=== PATIENT | female | born 1955 | race Asian ===

== ENCOUNTER → 2016-10-08 | Outpatient (CLI) | payer BC ==
[~2016-10-08] MED LIST: ADVIN25/60 INH; ALBINS/ INH; ALBUAER19 INH; ASPI81TA28 PO; AZITTAB2 PO; CALC500C70 PO; CLR10 PO; DILT120C68 PO; FISHOIL PO; MONT1TAB3 PO; MULTTAB58 PO; OSTEO BI FLEX PO; PLMIN90 INH; VNTHFA/IN INH
--- NOTE | 2016-10-08 16:29 | MAMMOGRAPHY REPORT ---
BILATERAL DIGITAL SCREENING MAMMOGRAM WITH CAD: 10/08/2016 CLINICAL HISTORY: Routine screening. Patient has no complaints. TECHNIQUE: Current study was also evaluated with a Computer Aided Detection (CAD) system. Bilatera l CC and MLO views were obtained. COMPARISON: Comparison is made to exams dated: 08/05/2015 mammogram, 07/27/2013 mammogram, 06/29/2011 mammogram, 07/04/2006 mammogram, 06/01/2002 mammogram, and 07/26/2012 mammogram - [facility]. BREAST COMPOSITION: There are scattered areas of fibroglandular density in both breasts. FINDINGS: No suspicious masses, calcifications, or areas of architectural distortion are noted in e ither breast. There has been no significant interval change compared to prior exams. IMPRESSION: ACR BI-RADS CATEGORY 1: NEGATIVE There is no mammographic evidence of malignancy. A 1 year screening mammogram is recommended. The p atient will receive written notification of the results. Approximately 10% of breast cancers are not detected with mammography. A negative mammographic repor t should not delay biopsy if a clinically suggestive mass is present. Nessa Whitaker M.D. /:10/08/2016 15:09:56 Real Estate Branch Manager: Sue Mayo, [facility] letter sent: Normal 1/2 BI-RADS Code: ACR BI-RADS Category 1: Negative
== END | disposition home or self-care (01) ==
LOC: C.MAMM 13:27
PROVIDERS: ATTEND Obstetrics & Gynecology
DX: Z12.31 Encounter for screening mammogram for malignant neoplasm of breast (principal)

== ENCOUNTER → 2016-10-27 | Outpatient (CLI) | payer BC | END | disposition home or self-care (01) | LOC: C.PAPS 09:42 | PROVIDERS: ATTEND Obstetrics & Gynecology | DX: Z01.419 Encounter for gynecological examination (general) (routine) without abnormal findings (principal) ==

== ENCOUNTER 2016-12-24 03:10 | Emergency (ER) | payer BC ==
[~2016-12-24] VITALS: Ht 170.2 cm; Wt 112.7 kg
[~2016-12-24 03:10] MED LIST changes: -ASPI81TA28 PO; -CALC500C70 PO; -CLR10 PO; -DILT120C68 PO; -PLMIN90 INH; -VNTHFA/IN INH
[2016-12-24 03:12] VITALS: TEMP 36.7; Ht 170.2 cm; Wt 112.7 kg
[2016-12-24] MEDS ORDERED: DILTIAZEM HCL 5 MG/ML 5 ML VIAL IV STA (03:23)
[2016-12-24] MEDS ORDERED: SODIUM CHLORIDE 0.9% 1000ML 1,000 ML IV STA (03:23)
[2016-12-24] MEDS ORDERED: SODIUM CHLORIDE 0.9% 250ML 250 ML IV STA (03:23)
[2016-12-24] MEDS ORDERED: DILTIAZEM BOLUS / DRIP IV STA (03:35)
[2016-12-24 03:36] LABS: BASO % 0.1 %; BASO ABS # 0.02 K/uL (0-0.2); COMPLETE YES; HEMATOCRIT 40.5 % (37-47); IG% 0.3 %; LYMPH % 36.6 %; LYMPH ABS # 4.94 K/uL (1.2-3.4); MEAN CELL VOLUME 85.4 fL (80-100); MEAN CORPUSCULAR HEMOGLOBIN 28.3 pg (25-34); MEAN CORPUSCULAR HGB CONC 33.1 g/dl (32-36); MEAN PLATELET VOLUME 9.8 fL (7.4-10.4); MONO % 5.3 %; NEUT % 57.7 %; PLATELET COUNT 258 K/uL (130-400); RED BLOOD COUNT 4.74 M/uL (4.2-5.4); WHITE BLOOD COUNT 13.49 K/uL (4.8-10.8)
[2016-12-24 03:39] VITALS: O2SAT 97
[2016-12-24] MEDS ORDERED: DILTIAZEM HCL INJ 125 MG in DEXTROSE 5% 100ML IV PRN (03:45)
[2016-12-24 03:54] LABS: ALT/SGPT 37 U/L (12-78); AST/SGOT 34 U/L (15-37); BLOOD UREA NITROGEN 24 mg/dl (7-18); CARBON DIOXIDE 22 mmol/L (21-32); CHLORIDE 109 mmol/L (98-107); CREATININE 0.96 mg/dl (0.60-1.20); GLUCOSE 150 mg/dl (70-99); MAGNESIUM 2.1 mg/dl (1.8-2.4); SODIUM 141 mmol/L (136-145)
[2016-12-24 04:05] LABS: ALKALINE PHOSPHATASE 83 U/L (45-117)
--- NOTE | 2016-12-24 04:11 | EMERGENCY ROOM VISIT NOTE ---
ED Visit Note First contact with patient: 03:17 Patient seen by me. Patient was worked up by the physician internal medicine physician assistant and agree with the workup. Patient was found to be in rapid atrial fibrillation, SVT was given a dose of Cardizem and after an IV was replaced patient went and was converted back to sinus rhythm. Patient is resting comfortably at 4:11 AM. Current/Historical Medications Scheduled Albuterol Inhaler (Ventolin Inhaler), 2 PUFFS INH Q4HR PRN Albuterol Sulf (Proventil 0.083% 2.5MG/3ML), 2.5 MG INH Q4-6HR PRN Azithromycin (Zithromax Tri-Jessee), 0 PO UD Fish Oil ([place]-3), 1 CAP PO DAILY Fluticasone Prop/Salmeterol (Advair Diskus 250/50 60 Dose), 1 PUFF INH BID Montelukast Sodium (Singulair), 10 MG PO HS Multiple Vitamin (Multivitamin), 1 TABLET PO DAILY [Osteo Bi flex], 1 TABLET PO DAILY Allergies Coded Allergies: No Known Allergies (Verified Allergy, Unknown, 08/30/02) Vital Signs Date Time Temp Pulse Resp B/P (MAP) Pulse Ox O2 Delivery O2 Flow Rate FiO2 12/24/16 04:01 69 12/24/16 03:39 97 Room Air 12/24/16 03:37 163 12/24/16 03:15 97 Room Air 12/24/16 03:12 36.7 85 22 139/82 97 Room Air Laboratory Results 12/24/16 03:25 Red Blood Count 4.74, Mean Corpuscular Volume 85.4, Mean Corpuscular Hemoglobin 28.3, Mean Corpuscular Hemoglobin Concent 33.1, Mean Platelet Volume 9.8, Neutrophils (%) (Auto) 57.7, Lymphocytes (%) (Auto) 36.6, Monocytes (%) (Auto) 5.3, Eosinophils (%) (Auto) 0.0, Basophils (%) (Auto) 0.1, Neutrophils # (Auto) 7.77, Lymphocytes # (Auto) 4.94, Monocytes # (Auto) 0.72, Eosinophils # (Auto) 0.00, Basophils # (Auto) 0.02 12/24/16 03:25 Test 12/24/16 03:25 12/24/16 03:31 White Blood Count 13.49 K/uL (4.8-10.8) Red Blood Count 4.74 M/uL (4.2-5.4) Hemoglobin 13.4 g/dL (12.0-16.0) Hematocrit 40.5 % (37-47) Mean Corpuscular Volume 85.4 fL (80-100) Mean Corpuscular Hemoglobin 28.3 pg (25-34) Mean Corpuscular Hemoglobin Concent 33.1 g/dl (32-36) Platelet Count 258 K/uL (130-400) Mean Platelet Volume 9.8 fL (7.4-10.4) Neutrophils (%) (Auto) 57.7 % Lymphocytes (%) (Auto) 36.6 % Monocytes (%) (Auto) 5.3 % Eosinophils (%) (Auto) 0.0 % Basophils (%) (Auto) 0.1 % Neutrophils # (Auto) 7.77 K/uL (1.4-6.5) Lymphocytes # (Auto) 4.94 K/uL (1.2-3.4) Monocytes # (Auto) 0.72 K/uL (0.11-0.59) Eosinophils # (Auto) 0.00 K/uL (0-0.5) Basophils # (Auto) 0.02 K/uL (0-0.2) RDW Standard Deviation 45.2 fL (36.4-46.3) RDW Coefficient of Variation 14.5 % (11.5-14.5) Immature Granulocyte % (Auto) 0.3 % Immature Granulocyte # (Auto) 0.04 K/uL (0.00-0.02) Anion Gap 10.0 mmol/L (3-11) Est Creatinine Clear Calc Drug Dose 80.7 ml/min Estimated GFR () 74.5 Estimated GFR (Non- 64.3 BUN/Creatinine Ratio 25.0 (10-20) Calcium Level 9.0 mg/dl (8.5-10.1) Magnesium Level 2.1 mg/dl (1.8-2.4) Total Bilirubin 0.2 mg/dl (0.2-1) Direct Bilirubin < 0.1 mg/dl (0-0.2) Aspartate Amino Transf (AST/SGOT) 34 U/L (15-37) Alanine Aminotransferase (ALT/SGPT) 37 U/L (12-78) Alkaline Phosphatase 83 U/L (45-117) Troponin I < 0.015 ng/ml (0-0.045) Total Protein 7.5 gm/dl (6.4-8.2) Albumin 3.6 gm/dl (3.4-5.0) Thyroid Stimulating Hormone (TSH) 6.330 uIu/ml (0.300-4.500) Bedside Troponin I < 0.030 ng/ml (0-0.045) Medications Administered Medications (Trade) Dose Ordered Sig/[place] Route Start Time Stop Time Status Last Admin Dose Admin Diltiazem HCl (Cardizem Inj) 20 mg NOW STAT IV 12/24/16 03:23 12/24/16 03:25 DC 12/24/16 03:31 20 MG Sodium Chloride 250 ml @ 999 mls/hr Q16M STAT IV 12/24/16 03:23 12/24/16 03:38 DC 12/24/16 03:34 999 MLS/HR Sodium Chloride 1,000 ml @ 125 mls/hr Q8H STAT IV 12/24/16 03:23 12/24/16 11:22 12/24/16 03:56 125 MLS/HR Departure Information Referrals Pro,Osbaldo Garg M.D. (PCP) Patient Instructions [facility]
[2016-12-24] MEDS ORDERED: VNTHFA/IN INH (04:36)
[2016-12-24] MEDS ORDERED: CALC500C70 PO (04:36)
[2016-12-24] MEDS ORDERED: ASPIRIN 81 MG CHEW PO STA (04:42)
--- NOTE | 2016-12-24 04:53 | EMERGENCY ROOM VISIT NOTE ---
History First contact with patient: 03:17 Chief Complaint: CARDIAC ASSESSMENT Stated Complaint: HEART BEATING FUNNY Nursing Triage Summary: Pt reports she developed heart palpatations at approximately midnight tonight. Pt also complaining of diaphoresis and "tingling in left chest". Pt states she has been having episodes of palpatations for approximately 16mo and has been to see her PCP. Had echo completed and was normal. To have holter monitor if episodes continued. Hx of asthma History of Present Illness The patient is a 61 year old female who presents to the Emergency Room with complaints of fluttering in her chest for the past 4 hours. Patient states she' s had several episodes throughout the past year. She was twisting a Holter monitor but has not done this yet. She had an echo a few years ago that showed a leaky valve per patient. No prior heart disease. Patient is currently on prednisone for an upper respiratory infection. She does have asthma. She just finished Biaxin. She returned from [place] 2 weeks ago. Patient denies dyspnea, chest pain, back pain, leg pain or swelling, abdominal pain, cough, congestion. Patient states she just feels like her heart is fluttering and racing. No recent alcohol intake. No history of heart disease or PE. Review of Systems See HPI for pertinent positives & negatives. A total of 10 systems reviewed and were otherwise negative. Past Medical/Surgical History Asthma Social History Smoking Status: Never Smoker Alcohol Use: occasionally Drug Use: none Marital Status: Housing Status: lives with family Current/Historical Medications Scheduled Albuterol Sulf (Proventil 0.083% 2.5MG/3ML), 2.5 MG INH Q4-6HR PRN Calcium/Vitamin D (Os-Adelfo 500 Plus D), 1 TAB PO DAILY Fluticasone Prop/Salmeterol (Advair Diskus 250/50 60 Dose), 1 PUFF INH BID Montelukast Sodium (Singulair), 10 MG PO HS Multiple Vitamin (Multivitamin), 1 TABLET PO DAILY Scheduled PRN Albuterol Hfa (Ventolin Hfa), 2-4 PUFFS INH Q6H PRN for SOB/Wheezing Allergies Coded Allergies: No Known Allergies (Verified , 12/24/16) Physical Exam Vital Signs Date Time Temp Pulse Resp B/P (MAP) Pulse Ox O2 Delivery O2 Flow Rate FiO2 12/24/16 04:32 111/83 12/24/16 04:10 70 21 97 12/24/16 04:07 106/84 12/24/16 04:01 69 12/24/16 03:40 95 19 94 12/24/16 03:39 97 Room Air 12/24/16 03:37 163 12/24/16 03:33 116/94 12/24/16 03:27 124/100 12/24/16 03:15 97 Room Air 12/24/16 03:12 36.7 85 22 139/82 97 Room Air Physical Exam VITALS: Vitals are noted on the nurse's note and reviewed by myself. Vital signs tachycardic GENERAL: Pleasant female, in no acute distress, nondiaphoretic, well-developed well-nourished. SKIN: The skin was without rashes, erythema, edema, or bruising. There is no tenting of the skin. Capillary reflex less than 2 seconds. HEAD: Normocephalic atraumatic. EARS: External auditory canals clear, tympanic membranes pearly tamayo without erythema or effusion bilaterally. EYES: Pupils equal round and reactive to light and accommodation. Conjunctivae without injection, sclerae without icterus. Extraocular movements intact. NOSE: Patent, turbinates without inflammation or discharge. MOUTH: Mucous membranes moist. Pharynx without erythema or exudate. Uvula midline. Airway patent. Tongue does not deviate. NECK: Supple without nuchal rigidity. No lymphadenopathy. No thyromegaly. Cervical spine is nontender. No JVD. HEART: Irregularly irregular tachycardic LUNGS: Clear to auscultation bilaterally without wheezes, rales or rhonchi. No dullness to percussion. No retractions or accessory muscle use. ABDOMEN: Positive bowel sounds x 4. Normal tympanic percussion. Soft, nontender, without masses or organomegaly. Choudhury sign negative. No guarding or rebound tenderness. MUSCULOSKELETAL: No muscle atrophy, erythema, or edema noted. NEURO: Patient was alert and oriented to person place and time. Normal sensation to light and sharp touch. No focal neurological deficits. Medical Decision & Procedures Laboratory Results 12/24/16 03:25 Red Blood Count 4.74, Mean Corpuscular Volume 85.4, Mean Corpuscular Hemoglobin 28.3, Mean Corpuscular Hemoglobin Concent 33.1, Mean Platelet Volume 9.8, Neutrophils (%) (Auto) 57.7, Lymphocytes (%) (Auto) 36.6, Monocytes (%) (Auto) 5.3, Eosinophils (%) (Auto) 0.0, Basophils (%) (Auto) 0.1, Neutrophils # (Auto) 7.77, Lymphocytes # (Auto) 4.94, Monocytes # (Auto) 0.72, Eosinophils # (Auto) 0.00, Basophils # (Auto) 0.02 12/24/16 03:25 Test 12/24/16 03:25 12/24/16 03:31 White Blood Count 13.49 K/uL (4.8-10.8) Red Blood Count 4.74 M/uL (4.2-5.4) Hemoglobin 13.4 g/dL (12.0-16.0) Hematocrit 40.5 % (37-47) Mean Corpuscular Volume 85.4 fL (80-100) Mean Corpuscular Hemoglobin 28.3 pg (25-34) Mean Corpuscular Hemoglobin Concent 33.1 g/dl (32-36) Platelet Count 258 K/uL (130-400) Mean Platelet Volume 9.8 fL (7.4-10.4) Neutrophils (%) (Auto) 57.7 % Lymphocytes (%) (Auto) 36.6 % Monocytes (%) (Auto) 5.3 % Eosinophils (%) (Auto) 0.0 % Basophils (%) (Auto) 0.1 % Neutrophils # (Auto) 7.77 K/uL (1.4-6.5) Lymphocytes # (Auto) 4.94 K/uL (1.2-3.4) Monocytes # (Auto) 0.72 K/uL (0.11-0.59) Eosinophils # (Auto) 0.00 K/uL (0-0.5) Basophils # (Auto) 0.02 K/uL (0-0.2) RDW Standard Deviation 45.2 fL (36.4-46.3) RDW Coefficient of Variation 14.5 % (11.5-14.5) Immature Granulocyte % (Auto) 0.3 % Immature Granulocyte # (Auto) 0.04 K/uL (0.00-0.02) Anion Gap 10.0 mmol/L (3-11) Est Creatinine Clear Calc Drug Dose 80.7 ml/min Estimated GFR () 74.5 Estimated GFR (Non- 64.3 BUN/Creatinine Ratio 25.0 (10-20) Calcium Level 9.0 mg/dl (8.5-10.1) Magnesium Level 2.1 mg/dl (1.8-2.4) Total Bilirubin 0.2 mg/dl (0.2-1) Direct Bilirubin < 0.1 mg/dl (0-0.2) Aspartate Amino Transf (AST/SGOT) 34 U/L (15-37) Alanine Aminotransferase (ALT/SGPT) 37 U/L (12-78) Alkaline Phosphatase 83 U/L (45-117) Troponin I < 0.015 ng/ml (0-0.045) Total Protein 7.5 gm/dl (6.4-8.2) Albumin 3.6 gm/dl (3.4-5.0) Thyroid Stimulating Hormone (TSH) 6.330 uIu/ml (0.300-4.500) Bedside Troponin I < 0.030 ng/ml (0-0.045) Medications Administered Medications (Trade) Dose Ordered Sig/[place] Route Start Time Stop Time Status Last Admin Dose Admin Diltiazem HCl (Cardizem Inj) 20 mg NOW STAT IV 12/24/16 03:23 12/24/16 03:25 DC 12/24/16 03:31 20 MG Sodium Chloride 250 ml @ 999 mls/hr Q16M STAT IV 12/24/16 03:23 12/24/16 03:38 DC 12/24/16 03:34 999 MLS/HR Sodium Chloride 1,000 ml @ 125 mls/hr Q8H STAT IV 12/24/16 03:23 12/24/16 11:22 12/24/16 03:56 125 MLS/HR Aspirin (Aspirin Chew) 81 mg NOW STAT PO 12/24/16 04:42 12/24/16 04:43 DC 12/24/16 04:45 81 MG ED Course Prior records/ancillary studies reviewed. Triage Nursing notes reviewed. Additional history obtained from family. The patient's history was concerning for palpitations. Differential diagnosis: Etiologies such as premature contractions, electrolyte abnormality, cardiac dysrhythmia, thyroid dysfunction, pulmonary embolism, infection, gastrointestinal, as well as others were entertained. Physical examination: Benign as above. ER treatment provided: Cardizem with drip On reassessment the patient felt better. Diagnostic interpretation by me: Cardiac monitoring revealed atrial fibrillation Electrocardiogram was irregularly irregular with no acute ST-T wave changes ventricular rate of 177. Impression atrial fibrillation with RVR. Repeat EKG shows normal sinus, normal intervals, no acute ST-T wave changes. Impression normal sinus rhythm interpreted by myself. Patient did convert. The labs revealed negative troponin. Slightly elevated TSH Imaging studies: Chest x-ray with no acute pneumothorax, consolidation, pneumothorax or free air per my interpretation Consultation: A consultation was placed with Dr Agustin, hospitalist. The case was discussed and diagnostics were reviewed. The patient was evaluated in the ER for further treatment. He recommends discharge as the patient just barely converted back to normal sinus rhythm and will follow-up with cardiology. This appears to be consistent with new-onset A. fib with RVR. Patient was placed on a drip with bolus. Her heart rate was high. Patient then converted on her own. Negative troponin. No prior known A. fib. Patient has been symptomatic for quite some time now.. She will be evaluated by medicine for possible admission. Medicine recommends discharge and follow-up outpatient with cardiology. Patient seen Dr. Manzo in the past. She has just been on steroids and currently is. No excessive caffeine use. Rarely drinks. By the evaluation outlined above emergent etiologies such as electrolyte abnormality, thyroid dysfunction, pulmonary embolism, infection, as well as others were deemed relatively unlikely. The pt informed about the findings as listed above. All questions were answered and pleased with the treatment. Case reviewed with my attending Discharge: Follow-up with cardiology in 2-3 days, call for an appointment today. Medical Decision As above Impression Primary Impression: Atrial fibrillation with rapid ventricular response Critical Care I have personally spent greater than 30 minutes of critical care time in the direct management of this patient. This includes bedside care, interpretation of diagnostic studies, and testing, discussion with consultants, patient, and family members, and other required patient management activities. This 30 minutes is in excess of all separately billable procedures. Departure Information Dispostion Home / Self-Care Condition GOOD Referrals Pro,Osbaldo Garg M.D. (PCP) Patient Instructions [facility] Additional Instructions Take 81 mg of aspirin daily. No alcohol, prednisone or excessive caffeine until cleared by cardiology. Rest and drink plenty of fluids as tolerated. Continue current medications. Avoid strenuous activities and anything that worsens your pain. Resume normal activities once your symptoms resolve. Return to the ER immediately for worsening or persistent palpitations/fluttering , abdominal pain, vomiting, fevers, chest pains, difficulty breathing, worsening of your condition, or as needed. Follow up with your senior sales associate in 2-3 days for a recheck of your current condition. Called this morning for a follow-up appointment.
[2016-12-24 05:02] VITALS: BP 124/98
[2016-12-24 05:07] VITALS: PULSE 74; O2SAT 97
--- NOTE | 2016-12-24 07:52 | DIAGNOSTIC IMAGING REPORT ---
CHEST ONE VIEW PORTABLE CLINICAL HISTORY: Chest pain and palpitations. COMPARISON STUDY: Chest radiograph May 21, 2014. FINDINGS: Lung volumes are normal. There is no consolidation to suggest pneumonia. There is no evidence of pulmonary edema. Cardiomediastinal silhouette is normal. Minimal left basilar opacity favors atelectasis. The appearance of the chest is unchanged. IMPRESSION: No acute cardiopulmonary findings. Electronically signed by: Jc Proctor M.D. 12/24/2016 7:50 AM Dictated Date/Time: 12/24/2016 7:49 AM
[2017-04-19] MEDS ORDERED: CLR10 PO (09:03)
[2017-04-19] MEDS ORDERED: ASPI81TA28 PO (09:03)
[2017-04-19] MEDS ORDERED: DILT120C68 PO (09:03)
[2017-04-19] MEDS ORDERED: PLMIN90 INH (09:03)
== END 2016-12-24 05:19 | disposition home or self-care (01) ==
LOC: C.EDB 03:11 → C.EDA 05:19
DX: I49.8 Other specified cardiac arrhythmias (principal); J45.909 Unspecified asthma, uncomplicated; I48.0 Paroxysmal atrial fibrillation

== ENCOUNTER → 2017-05-02 | Day surgery (SDC) | payer BC ==
[2017-04-19 09:03] VITALS: Ht 170.2 cm; Wt 111.4 kg
[~2017-05-02] VITALS: Ht 170.2 cm; Wt 111.4 kg
[~2017-05-02] MED LIST changes: -ADVIN25/60 INH; -ALBUAER19 INH; +ASPI81TA28 PO; +ATROPINE SULFATE 0.1 MG/ML 5ML SYR IV PRN; -AZITTAB2 PO; +CLR10 PO; +DILT120C68 PO; +EpHEDrine SULFATE INJ 50 MG/ML AMP IV PRN; -FISHOIL PO; +LIDOCAINE HCL 2% 2 ML VIAL (20MG/ML) ONE; +MIDAZOLAM HCL 1 MG/ML 2ML VIAL ONE; +ONDANSETRON INJ 2 MG/ML 2 ML VIAL ONE; -OSTEO BI FLEX PO; +PLMIN90 INH; +PROPOFOL IV EMULSION 10 MG/ML 20 ML VIAL IV ONE; +SODIUM CHLORIDE 0.9% 500ML 500 ML IV ONE; +VNTHFA/IN INH
--- NOTE | 2017-05-02 13:49 | Endo History and Physical ---
History & Physical Date of Service: May 02, 2017. Chief Complaint: Screening Referring Physician: Dr. Santoyo History of Present Illness 61 yo female who presents for screening colonoscopy. Past Surgical History Hx Cardiac Surgery: No Hx Internal Defibrillator: No Hx Pacemaker: No Hx Abdominal Surgery: No Hx of Implantable Prosthesis: No Hx Post-Op Nausea and Vomiting: No Hx Cancer Surgery: No Hx Thoracic Surgery: No Hx Orthopedic: No Hx Urinary Tract Surgery: No Family History None Social History Smoking Status: Former Smoker Hx Substance Use: No Hx Alcohol Use: Yes (OCCASIONAL) Allergies Coded Allergies: Nickel (Verified Allergy, Unknown, ITCHING AND SKIN IRRITATION, 04/19/17) Thimerosal (Verified Allergy, Unknown, EYE REDNESS, 04/19/17) Current Medications Reported Home Medications Medications Dose Route/Sig Max Daily Dose Days Date Category Dose Instructions Aspirin Ec (Aspirin) 81 Mg Tab 81 Mg PO HS 04/19/17 Reported Claritin (Loratadine) 10 Mg Tab 10 Mg PO HS 04/19/17 Reported Tiazac (Diltiazem HCl) 120 Mg Capcr 120 Mg PO QAM 04/19/17 Reported Pulmicort Flexhaler (Budesonide) 60 Puffs/5400 Mcg Aero 1 Puff INH BID 04/19/17 Reported Ventolin Hfa (Albuterol) 200 Puffs/47585 Mcg Aers 2-4 Puffs INH Q6H PRN 12/24/16 Reported Multivitamin (Multiple Vitamin) 1 Tab Tab 1 Tablet PO HS 08/05/12 Reported Proventil 0.083% 2.5MG/3ML (Albuterol Sulf) 2.5 Mg/3 Ml Nebu 2.5 Mg INH Q4-6HR PRN 08/05/12 Reported NEEDED FOR WHEEZING. Singulair (Montelukast Sodium) 10 Mg Tab 10 Mg PO HS 08/05/12 Reported Vital Signs Weight (Kilograms): 111.36 Height (Feet): 5 Height (Inches): 7 Physical Exam General Appearance: WD/WN, no apparent distress Respiratory/Chest: Auscultation: breath sounds normal Cardiovascular: Heart Auscultation: RRR Abdomen: Bowel Sounds: normal Inspection & Palpation: soft, non-distended, no tenderness, guarding & rebound Assessment and Plan Assessment: 61 yo female who presents for screening colonoscopy. Plan: Proceed with colonoscopy.
--- NOTE | 2017-05-02 15:19 | Discharge Instructions ---
Endoscopy Patient Instructions Date / Procedure(s) Performed May 02, 2017. Colonoscopy Allergy Information Coded Allergies: Nickel (Verified Allergy, Unknown, ITCHING AND SKIN IRRITATION, 04/19/17) Thimerosal (Verified Allergy, Unknown, EYE REDNESS, 04/19/17) Discharge Date / Findings May 02, 2017. Colon polyps Internal hemorrhoids Medication Instructions Stopped Medication(s): Patient was told to take her tiazac this am. OK to resume all medications today as prescribed Reported Home Medications Medications Dose Route/Sig Max Daily Dose Days Date Category Dose Instructions Aspirin Ec (Aspirin) 81 Mg Tab 81 Mg PO HS 04/19/17 Reported Claritin (Loratadine) 10 Mg Tab 10 Mg PO HS 04/19/17 Reported Tiazac (Diltiazem HCl) 120 Mg Capcr 120 Mg PO QAM 04/19/17 Reported Pulmicort Flexhaler (Budesonide) 60 Puffs/5400 Mcg Aero 1 Puff INH BID 04/19/17 Reported Ventolin Hfa (Albuterol) 200 Puffs/38366 Mcg Aers 2-4 Puffs INH Q6H PRN 12/24/16 Reported Multivitamin (Multiple Vitamin) 1 Tab Tab 1 Tablet PO HS 08/05/12 Reported Proventil 0.083% 2.5MG/3ML (Albuterol Sulf) 2.5 Mg/3 Ml Nebu 2.5 Mg INH Q4-6HR PRN 08/05/12 Reported NEEDED FOR WHEEZING. Singulair (Montelukast Sodium) 10 Mg Tab 10 Mg PO HS 08/05/12 Reported Provider Instructions Activity Restrictions - No exercising or heavy lifting for 24 hours. - Do not drink alcohol the day of the procedure. - Do not drive a car or operate machinery until the day after the procedure. - Do not make any important decisions or sign important papers in 24 hours after the procedure. Following Day: - Return to full activity which may include returning to work/school. Diet Start your diet with liquids and light foods (jello, soup, juice, toast). Then eat your usual diet if not nauseated. Treatment For Common After Affects For mild abdominal pain, bloating, or excessive gas: - Rest - Eat lightly - Lie on right side Follow-Up Information Follow-up with Osbaldo Santoyo as scheduled Anesthesia Information What You Should Know You have had a procedure that required some medicine to reduce anxiety and discomfort. This treatment is called moderate sedation. After receiving the treatment, you may be sleepy, but you will be able to breathe on your own. The effects of the treatment may last for several hours. Follow these instructions along with Activity/Diet recommendations noted above: * Do NOT do anything where dizziness or clumsiness would be dangerous. * Rest quietly at home today, then you can be up and about tomorrow. * Have a responsible person stay with you the rest of today. * You may have had an I.V. today. If so, you may take the dressing off later today. Recommendations Call your doctor if: * Trouble breathing * Continuous vomiting for more than 24 hours * Temperature above 101 degrees * Severe abdominal pain or bloating * Pain not relieved by pain medicine ordered * There is increased drainage or redness from any incision * A large amount of rectal bleeding greater than 2-3 tablespoons. (If you had a polyp/s removed or have hemorrhoids, a small amount of blood - from the rectum is to be expected.) * You have any unanswered questions or concerns. IN THE EVENT OF A SERIOUS EMERGENCY, GO TO THE NEAREST EMERGENCY ROOM Your discharge instructions were prepared by provider Nate Mills. Patient Instructions Signature Page Deloris Hamm Patient (or Guardian) Signature/Date: I have read and understand the instructions given to me by my caregivers. Caregiver/RN/Doctor Signature/Date: The above-named patient and/or guardian has received patient instructions on this date. + Original Patient Signature Page (only) stays with chart. Please make copy for patient.
--- NOTE | 2017-05-02 15:20 | Anesthesiology Progress Note ---
Anesthesia Post Op Note Date & Time May 02, 2017 at 15:19 Vital Signs Pain Intensity: 0 Vital Signs Past 12 Hours Date Time Temp Pulse Resp B/P (MAP) Pulse Ox O2 Delivery O2 Flow Rate FiO2 05/02/17 13:57 36.9 73 18 144/81 (102) 95 Room Air Notes Mental Status: alert / awake / arousable, participated in evaluation Pt Amnestic to Procedure: Yes Nausea / Vomiting: adequately controlled Pain: adequately controlled Airway Patency, RR, SpO2: stable & adequate BP & HR: stable & adequate Hydration State: stable & adequate Anesthetic Complications: no major complications apparent
--- NOTE | 2017-05-02 15:26 | GI REPORT ---
Procedure Date: 05/02/2017 2:39 PM Procedure: Colonoscopy Indications: Screening for colorectal malignant neoplasm Medicines: Monitored Anesthesia Care Complications: No immediate complications. Estimated Blood Loss: Estimated blood loss: none. Procedure: Pre-Anesthesia Assessment: - Prior to the procedure, a History and Physical was performed, and patient medications and allergies were reviewed. The patient's tolerance of previous anesthesia was also reviewed. The risks and benefits of the procedure and the sedation options and risks were discussed with the patient. All questions were answered, and informed consent was obtained. Prior Anticoagulants: The patient has taken aspirin, last dose was 1 day prior to procedure. ASA Grade Assessment: III - A patient with severe systemic disease. After reviewing the risks and benefits, the patient was deemed in satisfactory condition to undergo the procedure. After I obtained informed consent, the scope was passed under direct vision. Throughout the procedure, the patient's blood pressure, pulse, and oxygen saturations were monitored continuously. The scope was introduced through the anus and advanced to the terminal ileum. The colonoscopy was performed without difficulty. The patient tolerated the procedure well. The quality of the bowel preparation was good. The terminal ileum, ileocecal valve, appendiceal orifice, and rectum were photographed. Findings: Three sessile polyps were found in the transverse colon and in the ascending colon. The polyps were 3 to 5 mm in size. These polyps were removed with a cold snare. Resection and retrieval were complete. Non-bleeding internal hemorrhoids were found during retroflexion. The hemorrhoids were small. Impression: - Three 3 to 5 mm polyps in the transverse colon and in the ascending colon, removed with a cold snare. Resected and retrieved. - Non-bleeding internal hemorrhoids. Recommendation: - Resume previous diet. - Continue present medications. - Repeat colonoscopy for surveillance based on pathology results. - Return to primary care physician as previously scheduled. Nate MillsDO 05/02/2017 3:25:39 PM This report has been signed electronically. Note Initiated On: 05/02/2017 2:39 PM I attest to the content of the Intraoperative Record and orders documented therein, exceptions below
[2017-05-02 15:47] VITALS: BP 124/81; PULSE 67; O2SAT 97
== END | disposition home or self-care (01) ==
LOC: C.GI 13:22
PROVIDERS: ATTEND Internal Medicine
DX: Z12.11 Encounter for screening for malignant neoplasm of colon (principal); D12.3 Benign neoplasm of transverse colon; D12.2 Benign neoplasm of ascending colon; K64.8 Other hemorrhoids; J45.909 Unspecified asthma, uncomplicated; Z79.82 Long term (current) use of aspirin; E66.9 Obesity, unspecified; Z68.38 Body mass index [BMI] 38.0-38.9, adult; Z87.891 Personal history of nicotine dependence

== ENCOUNTER → 2017-07-07 | Outpatient (CLI) | payer BC ==
[~2017-07-07] MED LIST changes: -ATROPINE SULFATE 0.1 MG/ML 5ML SYR IV PRN; -EpHEDrine SULFATE INJ 50 MG/ML AMP IV PRN; -LIDOCAINE HCL 2% 2 ML VIAL (20MG/ML) ONE; -MIDAZOLAM HCL 1 MG/ML 2ML VIAL ONE; -ONDANSETRON INJ 2 MG/ML 2 ML VIAL ONE; -PROPOFOL IV EMULSION 10 MG/ML 20 ML VIAL IV ONE; -SODIUM CHLORIDE 0.9% 500ML 500 ML IV ONE
[2017-07-07 10:56] LABS: HEMATOCRIT 37.1 % (37-47); MEAN CELL VOLUME 86.5 fL (80-100); MEAN CORPUSCULAR HEMOGLOBIN 28.9 pg (25-34); MEAN CORPUSCULAR HGB CONC 33.4 g/dl (32-36); PLATELET COUNT 225 K/uL (130-400); RED BLOOD COUNT 4.29 M/uL (4.2-5.4); WHITE BLOOD COUNT 6.56 K/uL (4.8-10.8)
[2017-07-07 11:26] LABS: BLOOD UREA NITROGEN 16 mg/dl (7-18); CALCIUM 8.8 mg/dl (8.5-10.1); CARBON DIOXIDE 24 mmol/L (21-32); CHLORIDE 105 mmol/L (98-107); CREATININE 0.73 mg/dl (0.60-1.20); GLUCOSE 132 mg/dl (70-99); POTASSIUM 4.2 mmol/L (3.5-5.1); SODIUM 136 mmol/L (136-145)
[2017-07-07 11:38] LABS: CHOLESTEROL 188 mg/dl (0-200); CHOLESTEROL/HDL RATIO 3.8; HDL CHOLESTEROL 50 mg/dl; LDL CHOLESTEROL CALCULATED 112 mg/dl; TRIGLYCERIDES 130 mg/dl (0-150); VERY LOW DENSITY LIPOPROT CALC 26 mg/dl
== END | disposition home or self-care (01) ==
LOC: C.LAB1850 10:16
PROVIDERS: ATTEND Internal Medicine
DX: I48.0 Paroxysmal atrial fibrillation (principal); R00.2 Palpitations

== ENCOUNTER → 2017-09-08 | Outpatient (CLI) | payer OTHER ==
--- NOTE | 2017-09-08 09:18 | DIAGNOSTIC IMAGING REPORT ---
CHEST 2 VIEWS ROUTINE CLINICAL HISTORY: R05 [id number] COMPARISON STUDY: 12/24/2016 FINDINGS: The cardiac and mediastinal contours are normal. There is no evidence of focal pulmonary consolidation. There is no evidence of failure. No pleural effusions are visualized.[ IMPRESSION: No active disease in the chest. Electronically signed by: Jah Palomino M.D. 09/08/2017 9:16 AM Dictated Date/Time: 09/08/2017 9:16 AM
[2017-09-08 10:32] LABS: INFLUENZA B ANTIGEN Neg for Influ B (NEG)
== END | disposition home or self-care (01) ==
LOC: C.RAD1850 09:04
PROVIDERS: ATTEND Physician Assistant Medical
DX: R05 Cough (principal); R06.2 Wheezing

== ENCOUNTER → 2017-11-16 | Outpatient (CLI) | payer OTHER ==
--- NOTE | 2017-11-16 15:45 | MAMMOGRAPHY REPORT ---
BILATERAL DIGITAL SCREENING MAMMOGRAM TOMOSYNTHESIS WITH CAD: 11/16/2017 CLINICAL HISTORY: Routine screening. Patient has no complaints. TECHNIQUE: Breast tomosynthesis in addition to standard 2D mammography was performed. Current study was also evaluated with a Computer Aided Detection (CAD) system. COMPARISON: Comparison is made to exams dated: 10/08/2016 mammogram, 08/05/2015 mammogram, 07/27/2013 m ammogram, 07/26/2012 mammogram, 06/29/2011 mammogram, and 07/04/2006 mammogram - [facility]. BREAST COMPOSITION: There are scattered areas of fibroglandular density in both breasts. FINDINGS: There are stable nodular asymmetries in the lateral left breast and medial right breast. A few benign rim calcifications. No suspicious mass, architectural distortion or cluster of suspiciou s microcalcifications is seen. IMPRESSION: ACR BI-RADS CATEGORY 1: NEGATIVE There is no mammographic evidence of malignancy. A 1 year screening mammogram is recommended. The pa tient will receive written notification of the results. Approximately 10% of breast cancers are not detected with mammography. A negative mammographic report should not delay biopsy if a clinically suggestive mass is present. Doris Bal M.D. ay/:11/16/2017 14:58:04 Manager Loan: Sue Mayo, [facility] letter sent: Normal 1/2 BI-RADS Code: ACR BI-RADS Category 1: Negative
== END | disposition home or self-care (01) ==
LOC: C.MAMM 14:25
PROVIDERS: ATTEND Obstetrics & Gynecology
DX: Z12.31 Encounter for screening mammogram for malignant neoplasm of breast (principal)

== ENCOUNTER 2018-12-17 19:04 | Inpatient (IN) ==
[2018-12-17] MEDS ORDERED: ASPIRIN CHEW 324 MG PO STA (19:17)
[2018-12-17] MEDS ORDERED: SODIUM CHLORIDE 0.9% 1000ML 1,000 ML IV SCH (19:30)
[2018-12-17 19:33] LABS: Basophils # (auto) 0.07 K/uL (0-0.2); Basophils % (auto) 0.7 %; Hematocrit (blood only) 40.8 % (37-47); Hemoglobin 14.1 g/dL (12.0-16.0); Immature Granulocytes # (auto) 0.02 K/uL (0.00-0.02); Immature Granulocytes % (auto) 0.2 %; Lymphocytes % (auto) 37.5 %; Mean Corpuscular Hgb Conc 34.6 g/dL (32-36); Mean Corpuscular Volume 84.6 fL (80-100); Mean Platelet Volume 9.5 fL (7.4-10.4); Monocytes # (auto) 0.66 K/uL (0.11-0.59); Monocytes % (auto) 6.7 %; Neutrophils # (auto) 5.41 K/uL (1.4-6.5); Neutrophils % (auto) 54.9 %; Platelet Count 237 K/uL (130-400); RDW Coefficient of Variation 14.3 % (11.5-14.5); RDW Standard Deviation 44.4 fL (36.4-46.3); Red Blood Count 4.82 M/uL (4.2-5.4); White Blood Count 9.86 K/uL (4.8-10.8)
[2018-12-17] MEDS ORDERED: LORazepam 1 MG/2 ML VIAL IV STA (19:35)
--- NOTE | 2018-12-17 19:42 | XRay Report ---
SINGLE VIEW CHEST CLINICAL HISTORY: Atypical chest pain. FINDINGS: An AP, portable, upright chest radiograph is compared to study dated 12/24/2016. The cardiome diastinal silhouette is unremarkable. The lungs and pleural spaces are clear. No pneumothorax is seen . The bony thorax is grossly intact. IMPRESSION: No active disease in the chest. Electronically signed by: Facundo Miranda M.D. 12/17/2018 7:41 PM
[2018-12-17 19:44] LABS: Partial Thromboplastin Time 26.6 Seconds (21.0-31.0); Prothrombin Time 9.8 Seconds (9.0-12.0)
[2018-12-17 19:48] LABS: BUN Creatinine Ratio 21.8 (10-20); Blood Urea Nitrogen 18 mg/dl (7-18); Calcium 9.4 mg/dl (8.5-10.1); Carbon Dioxide 23 mmol/L (21-32); Chloride 107 mmol/L (98-107); Est GFR (African American) 86.3; Est GFR (Non-African American) 74.5; Glucose 141 mg/dl (70-99); Magnesium 2.2 mg/dl (1.8-2.4); Sodium 139 mmol/L (136-145)
[2018-12-17 19:53] LABS: Troponin I < 0.015 ng/ml (0-0.045)
[2018-12-17] MEDS ORDERED: OPTIRAY 320 125ml IV PRN (20:09)
--- NOTE | 2018-12-17 20:40 | CT Scan Report ---
CT ANGIOGRAM OF THE CHEST CLINICAL HISTORY: Atypical chest pain. COMPARISON STUDY: Chest x-ray dated 12/17/2018. TECHNIQUE: Following the IV administration of 120 cc of Optiray 320, CT angiogram of the chest was pe rformed from the upper abdomen to the thoracic inlet utilizing the pulmonary embolus protocol. Images are reviewed in the axial, sagittal, and coronal planes. 3-D MIPS images are created and assessed. I V contrast was administered without complication. A dose lowering technique was utilized adhering to the principles of ALARA. CT DOSE: 497.30 mGycm FINDINGS: Thyroid: Imaged portions of the thyroid gland are normal in size and attenuation. Thoracic aorta: The thoracic aorta is normal in caliber and demonstrates standard 3-vessel arch anato my. No dissection is seen. Pulmonary vasculature: The pulmonary trunk is normal in caliber. There are no filling defects identif ied in main, lobar, or segmental pulmonary branches to suggest pulmonary embolus. Heart: The heart is normal in size and without pericardial effusion. There are coronary artery calcif ications. Lungs and pleural spaces: There is mild bibasilar atelectasis. No airspace consolidation or pleural e ffusion is seen. A 1.5 cm cyst is noted in the right upper lobe. The trachea and central airways are clear. A small calcified granuloma is noted at the left lung base. Mediastinum: There is no mediastinal lymphadenopathy. Ellen: Clear. Axillae: There is no axillary lymphadenopathy. Upper abdomen: The liver is enlarged and steatotic. Partially image upper abdominal viscera is otherw ise grossly unremarkable. Skeletal structures: The skeletal structures are osteopenic. No lytic or blastic bony lesions are see n. Degenerative change is noted in the thoracic spine and shoulders. IMPRESSION: 1. There is no evidence of pulmonary embolus in the main, lobar, or segmental pulmonary arteries. 2. There is no airspace consolidation or pleural effusion. 3. Hepatomegaly and hepatic steatosis. Electronically signed by: Facundo Miranda M.D. 12/17/2018 8:39 PM
[2018-12-17] MEDS ORDERED: METOPROLOL TARTRATE 1 MG/ML VIAL IV STA (20:44)
[2018-12-17] MEDS ORDERED: LABETALOL HCL IV 5 MG/ML 20ML IV STA ×2 (20:46→21:17)
[2018-12-17] MEDS ORDERED: METOPROLOL TARTRATE 1 MG/ML VIAL IV ONE (20:47)
[2018-12-17] MEDS: SODIUM CHLORIDE 0.9% 500 ML IV SCH (21:25)
[2018-12-17] MEDS: APIXABAN 2.5 MG TAB PO SCH (21:51)
[2018-12-17] MEDS: dilTIAZem HCl 125 MG in DEXTROSE 5% 100 ML IV SCH (22:22)
--- NOTE | 2018-12-17 22:53 | Emergency Department Note ---
Entered by Ana Ribera acting as a scribe for Miguel Terry History of Present Illness General Chief complaint: Tachycardia Stated complaint: HIGH RESTING HR 130-145 Time Seen by Provider: 12/17/18 19:14 Source: patient History of Present Illness Provider complaint: tachycardia Onset (ago): hour(s) 7 Location: chest Maximum Pain Intensity: 0 Relieved By: + none Exacerbated By: + none Associated symptoms: + cough and + other (-abdominal pain, -blood in cough); no chest pain, no shortness of breath and no syncope The patient is a 63 year old female who presents to the Emergency Room with complaints of tachycardiac episode. The patient states that she felt her heart was racing at 1200 today while she was taking a shower. The patient reports that she has a history of atrial fibrillation, but this is not a similar feeling. She notes that she has had asthma for the past month. She denies any chest pain, shortness of breath, loss of consciousness, abdominal pain, or blood in her cough. The patient states she has not used her nebulizer recently. She notes that she took a recent tripped to [place] 2 weeks ago. The patient denies any recent stress or anxiety. Home Medications Home Medications Medication Instructions Recorded Confirmed Type albuterol sulfate [ProAir HFA] 1 - 2 puff INHALATION DIRECTED 12/17/18 12/17/18 History PRN aspirin [Aspir-81] 81 mg PO HS 12/17/18 12/17/18 History budesonide 0.5 mg INHALATION BID 12/17/18 12/17/18 History diltiazem HCl 120 mg PO DAILY 12/17/18 12/17/18 History flecainide 50 mg PO Q12H 12/17/18 12/17/18 History ipratropium-albuterol 3 ml INHALATION DIRECTED PRN 12/17/18 12/17/18 History loratadine [Claritin] 10 mg PO HS 12/17/18 12/17/18 History montelukast [Singulair] 10 mg PO HS 12/17/18 12/17/18 History multivitamin 1 tab PO HS 12/17/18 12/17/18 History pantoprazole 40 mg PO DAILY 12/17/18 12/17/18 History Allergies Allergy/AdvReac Type Severity Reaction Status Date / Time nickel Allergy Mild ITCHING Verified 12/17/18 19:52 AND SKIN IRRITATION thimerosal Allergy Mild EYE REDNESS Verified 12/17/18 19:52 Past Med/Surg History Medical History Atrial fibrillation (Chronic) Social History Preferred Language: Serbian Feels Safe at Home: Yes Smoking Status: Never smoker Review of Systems See HPI for pertinent positives & negatives. and A total of 10 systems reviewed and were otherwise negative Physical Exam Vital Signs Vital Signs - 24 hr 12/17/18 19:06 12/17/18 19:19 12/17/18 19:28 Temperature 36.9 C Temperature Source Oral Sepsis Recent Fever Within 48 Hours No Sepsis Action Taken by Nursing No Action Required Pulse Rate 139 H 136 H Pulse Rate [Apical] 137 H Pulse Rate from SpO2 Sensor Pulse Rhythm Irregular Respiratory Rate 20 17 Respiratory Effort / Characteristics Non-Labored Spontaneous Respiratory Depth Normal Blood Pressure Blood Pressure [Right Arm] 165/114 H Blood Pressure Mean Blood Pressure Mean [Right Arm] 131 Blood Pressure Position Sitting Pulse Oximetry 95 99 97 Oxygen Delivery Method Room Air Room Air Room Air 12/17/18 19:29 12/17/18 20:19 12/17/18 20:30 Temperature Temperature Source Sepsis Recent Fever Within 48 Hours Sepsis Action Taken by Nursing Pulse Rate 131 H 131 H Pulse Rate [Apical] Pulse Rate from SpO2 Sensor 130 H Pulse Rhythm Respiratory Rate 14 13 Respiratory Effort / Characteristics Respiratory Depth Blood Pressure 123/106 H Blood Pressure [Right Arm] Blood Pressure Mean 111 Blood Pressure Mean [Right Arm] Blood Pressure Position Pulse Oximetry 98 Oxygen Delivery Method Room Air 12/17/18 20:31 12/17/18 20:49 12/17/18 21:01 Temperature Temperature Source Sepsis Recent Fever Within 48 Hours Sepsis Action Taken by Nursing Pulse Rate 131 H 130 H 125 H Pulse Rate [Apical] Pulse Rate from SpO2 Sensor Pulse Rhythm Respiratory Rate 13 17 14 Respiratory Effort / Characteristics Respiratory Depth Blood Pressure 101/90 114/88 113/75 Blood Pressure [Right Arm] Blood Pressure Mean 93 96 87 Blood Pressure Mean [Right Arm] Blood Pressure Position Pulse Oximetry Oxygen Delivery Method 12/17/18 21:15 12/17/18 21:31 Temperature Temperature Source Sepsis Recent Fever Within 48 Hours Sepsis Action Taken by Nursing Pulse Rate 127 H 99 H Pulse Rate [Apical] Pulse Rate from SpO2 Sensor 100 H Pulse Rhythm Respiratory Rate 16 14 Respiratory Effort / Characteristics Respiratory Depth Blood Pressure 105/77 101/76 Blood Pressure [Right Arm] Blood Pressure Mean 86 84 Blood Pressure Mean [Right Arm] Blood Pressure Position Pulse Oximetry 98 Oxygen Delivery Method GENERAL: She is oriented to person, place, and time. She appears well-developed and well-nourished. She does not appear distressed. HENT: Exam performed. Head: Normocephalic and atraumatic. Right Ear: External ear normal. No mastoid tenderness. Left Ear: External ear normal. No mastoid tenderness. Mouth/Throat: The oropharynx is clear and moist. No trismus in the jaw. No dental abscesses or uvula swelling. No oropharyngeal exudate or tonsillar abscesses. EYES: Conjunctivae and EOM are normal. Pupils are equal, round, and reactive to light. Right eye exhibits no discharge. Left eye exhibits no discharge. No scleral icterus. NECK: Normal range of motion. Neck supple. No JVD present. No spinous process tenderness present. No carotid bruit present. No rigidity. No tracheal deviation and normal range of motion present. No Brudzinski's sign and no Kernig's sign noted. CV: Tachycardic. Normal regular rhythm, normal heart sounds and intact distal pulses. There is no peripheral edema. Palpable radial pulses bue. PULM/CHEST: Effort normal and breath sounds normal. No respiratory distress. No stridor. She has no wheezes. She has no rales. Chest Wall: She exhibits no tenderness. ABD: The abdomen is soft. Bowel sounds are normal. She has no distension. No mass is present. There is no tenderness. There is no rebound, no guarding, no Choudhury's sign and no tenderness at McBurney's point. Rovsig negative MUSC/SKEL: Normal range of motion. There is no peripheral edema, tenderness or deformity. LYMPH: No cervical adenopathy. NEURO: She is alert and oriented to person, place, and time. She has normal strength. No cranial nerve deficit or sensory deficit. Coordination and gait normal. GCS eye subscore is 4. GCS verbal subscore is 5. GCS motor subscore is 6. cerbellar tests wnl. SKIN: Skin is warm and dry. She is not diaphoretic. PSYCH: She has a normal mood and affect. Her behavior is normal. Judgment and thought content normal. Course 1914: The patient was evaluated in room B12B, and a complete history and physical examination were performed. The patient was immediately placed on a monitoring specialist. EKGs were conducted and the computer showed an acute RI. I did not appreciate ST depression. I discussed the results with Dr. Guzmán- [facility] Cardiology and she noted that there is no ST elevations or ST depression. 2048: The patient remains tachycardic in 130s, her CTA is negative for PE. I gave the patient a dosage of Labetalol and monitored her response. 2099: The patient's heart rate went down to the 120s, I will repeat labetalol bolus and contacted Cardiology about a potential follow up. 2118: I discussed the case with Dr. Jeff- [facility] Cardiology, who states he was concern about the patient being in atrial flutter that was being truly masked by flecianide. He reviewed the EKGs and he believes the patient is in atrial flutter. He states that the patient could be cardioverted and discharged with Apixiban or admit with Cardizem drip and begin to start on anticoagulants. If the patient was admitted, he recommend anticoagulantion with Apixaban and not heparin. I discussed these options with the patient. I did mention the risk of possible of embolic stroke since she is not currently on anticoagulants. The patient agreed to Cardizem drip and admission to cardiology monitored. Dr. Martinez. 2149: Status post 15 mg of labetalol IV push, the patient's heart rate is improved 90-105. Given this the Cardizem drip will be held at this time and if her heart rate increases again she will be started on the Cardizem drip. Administered Medications Apixaban (Eliquis) 5 mg PO BID [facility] Stop: 01/16/19 21:44 Last Admin: 12/17/18 21:51 Dose: 5 mg Documented by: [id number] Sodium Chloride (Nss) 500 mls @ 125 mls/hr IV .Q4H [place] Stop: 01/16/19 20:59 Last Admin: 12/17/18 21:25 Dose: 125 mls/hr Documented by: [id number] Diltiazem HCl 125 mg/ Dextrose 125 mls @ 5 mls/hr IV .Q24H [facility]; Protocol Stop: 01/16/19 21:44 Last Admin: 12/17/18 22:22 Dose: 5 mg/hr, 5 mls/hr Documented by: [id number] Cosigned by: [id number] Ioversol (Optiray 320 125ml) 120 ml IV ONCE PRN PRN Reason: Interaction Checking Stop: 12/21/18 20:08 Last Admin: 12/17/18 20:10 Dose: 120 ml Documented by: [id number] Discontinued Medications Aspirin (Aspirin) 324 mg PO NOW STA Stop: 12/17/18 19:18 Last Admin: 12/17/18 19:25 Dose: 324 mg Documented by: [id number] Sodium Chloride (Nss 1000ml) 1,000 mls @ 999 mls/hr IV .Q1H1M [facility] Stop: 12/17/18 20:30 Last Infusion: 12/17/18 20:12 Dose: 0 mls/hr Documented by: [id number] Admin: 12/17/18 19:26 Dose: 999 mls/hr Documented by: [id number] Lorazepam (Ativan) 1 mg in 2 mls @ 2 mls/min IV NOW STA Stop: 12/17/18 19:36 Last Admin: 12/17/18 19:42 Dose: 2 mls/min Documented by: [id number] Labetalol HCl (Normodyne) 5 mg IV NOW STA Stop: 12/17/18 20:47 Last Admin: 12/17/18 20:53 Dose: 5 mg Documented by: [id number] Cosigned by: [id number] Labetalol HCl (Normodyne) 10 mg IV NOW STA Stop: 12/17/18 21:18 Last Admin: 12/17/18 21:25 Dose: 10 mg Documented by: [id number] Cosigned by: [id number] Metoprolol Tartrate (Lopressor) 5 mg IV NOW STA Stop: 12/17/18 20:45 Last Admin: 12/17/18 21:50 Dose: Not Given Documented by: [id number] Metoprolol Tartrate (Lopressor) Confirm Administered Dose 5 mg IV .STK-MED ONE Stop: 12/17/18 20:48 Last Admin: 12/17/18 20:49 Dose: Not Given Documented by: [id number] Medical Decision Making Medical Records Attestation: I reviewed the patient's medical records. Home Medications Current Medication List: was personally reviewed by me Laboratory Data Attestation: I reviewed the patient's lab results. Result diagrams: 12/17/18 19:18 12/17/18 19:18 Lab Results 12/17/18 12/17/18 12/17/18 Range/Units 19:18 19:18 19:18 WBC 9.86 (4.8-10.8) K/uL RBC 4.82 (4.2-5.4) M/uL Hgb 14.1 (12.0-16.0) g/dL Hct 40.8 (37-47) % MCV 84.6 (80-100) fL MCH 29.3 (25-34) pg MCHC 34.6 (32-36) g/dL RDW Std Deviation 44.4 (36.4-46.3) fL RDW Coeff of Jaun 14.3 (11.5-14.5) % Plt Count 237 (130-400) K/uL MPV 9.5 (7.4-10.4) fL Immature Gran % (Auto) 0.2 % Neut % (Auto) 54.9 % Lymph % (Auto) 37.5 % [place] % (Auto) 6.7 % Eos % (Auto) 0.0 % Baso % (Auto) 0.7 % Immature Gran # (Auto) 0.02 (0.00-0.02) K/uL Neut # (Auto) 5.41 (1.4-6.5) K/uL Lymph # (Auto) 3.70 H (1.2-3.4) K/uL [place] # (Auto) 0.66 H (0.11-0.59) K/uL Eos # (Auto) 0.00 (0-0.5) K/uL Baso # (Auto) 0.07 (0-0.2) K/uL PT 9.8 (9.0-12.0) Seconds INR 1.0 (0.9-1.1) APTT 26.6 (21.0-31.0) Seconds PTT Ratio 1.0 Sodium 139 (136-145) mmol/L Potassium 4.0 (3.5-5.1) mmol/L Chloride 107 (98-107) mmol/L Carbon Dioxide 23 (21-32) mmol/L Anion Gap 9.0 (3-11) BUN 18 (7-18) mg/dl Creatinine 0.84 (0.6-1.2) mg/dl Est Cr Clr Drug Dosing 92.0 ml/min Est GFR ( Amer) 86.3 Est GFR (Non-Af Amer) 74.5 BUN/Creatinine Ratio 21.8 H (10-20) Glucose 141 H (70-99) mg/dl Calcium 9.4 (8.5-10.1) mg/dl Magnesium 2.2 (1.8-2.4) mg/dl POC Troponin I (0-0.045) ng/ml Troponin I < 0.015 (0-0.045) ng/ml Lipase 135 (73-393) U/L 12/17/18 Range/Units 19:25 WBC (4.8-10.8) K/uL RBC (4.2-5.4) M/uL Hgb (12.0-16.0) g/dL Hct (37-47) % MCV (80-100) fL MCH (25-34) pg MCHC (32-36) g/dL RDW Std Deviation (36.4-46.3) fL RDW Coeff of Jaun (11.5-14.5) % Plt Count (130-400) K/uL MPV (7.4-10.4) fL Immature Gran % (Auto) % Neut % (Auto) % Lymph % (Auto) % [place] % (Auto) % Eos % (Auto) % Baso % (Auto) % Immature Gran # (Auto) (0.00-0.02) K/uL Neut # (Auto) (1.4-6.5) K/uL Lymph # (Auto) (1.2-3.4) K/uL [place] # (Auto) (0.11-0.59) K/uL Eos # (Auto) (0-0.5) K/uL Baso # (Auto) (0-0.2) K/uL PT (9.0-12.0) Seconds INR (0.9-1.1) APTT (21.0-31.0) Seconds PTT Ratio Sodium (136-145) mmol/L Potassium (3.5-5.1) mmol/L Chloride (98-107) mmol/L Carbon Dioxide (21-32) mmol/L Anion Gap (3-11) BUN (7-18) mg/dl Creatinine (0.6-1.2) mg/dl Est Cr Clr Drug Dosing ml/min Est GFR ( Amer) Est GFR (Non-Af Amer) BUN/Creatinine Ratio (10-20) Glucose (70-99) mg/dl Calcium (8.5-10.1) mg/dl Magnesium (1.8-2.4) mg/dl POC Troponin I < 0.03 (0-0.045) ng/ml Troponin I (0-0.045) ng/ml Lipase (73-393) U/L Imaging Data Radiologist's Impression: Radiology results as stated below per my review and the radiologist's interpretation: SINGLE VIEW CHEST CLINICAL HISTORY: Atypical chest pain. FINDINGS: An AP, portable, upright chest radiograph is compared to study dated 12/24/2016. The cardiomediastinal silhouette is unremarkable. The lungs and ple ural spaces are clear. No pneumothorax is seen. The bony thorax is grossly intact. IMPRESSION: No active disease in the chest. Electronically signed by: Facundo Miranda M.D. 12/17/2018 7:[address] ANGIOGRAM OF THE CHEST CLINICAL HISTORY: Atypical chest pain. COMPARISON STUDY: Chest x-ray dated 12/17/2018. TECHNIQUE: Following the IV administration of 120 cc of Optiray 320, CT angiogram of the chest was performed from the upper abdomen to the thoracic i nlet utilizing the pulmonary embolus protocol. Images are reviewed in the axial, sagittal, and coronal planes. 3-D MIPS images are created and assessed. IV contrast was administered without complication. A dose lowering technique was utilized adhering to the principles of ALARA. CT DOSE: 497.30 mGycm FINDINGS: Thyroid: Imaged portions of the thyroid gland are normal in size and attenuation. Thoracic aorta: The thoracic aorta is normal in caliber and demonstrates standard 3-vessel arch anatomy. No dissection is seen. Pulmonary vasculature: The pulmonary trunk is normal in caliber. There are no filling defects identified in main, lobar, or segmental pulmonary branches to suggest pulmonary embolus. Heart: The heart is normal in size and without pericardial effusion. There are coronary artery calcifications. Lungs and pleural spaces: There is mild bibasilar atelectasis. No airspace c onsolidation or pleural effusion is seen. A 1.5 cm cyst is noted in the right upper lobe. The trachea and central airways are clear. A small calcified granuloma is noted at the left lung base. Mediastinum: There is no mediastinal lymphadenopathy. Ellen: Clear. Axillae: There is no axillary lymphadenopathy. Upper abdomen: The liver is enlarged and steatotic. Partially image upper abdominal viscera is otherwise grossly unremarkable. Skeletal structures: The skeletal structures are osteopenic. No lytic or blastic bony lesions are seen. Degenerative change is noted in the thoracic spine and sh oulders. IMPRESSION: 1. There is no evidence of pulmonary embolus in the main, lobar, or segmental pulmonary arteries. 2. There is no airspace consolidation or pleural effusion. 3. Hepatomegaly and hepatic steatosis. Electronically signed by: Facundo Miranda M.D. 12/17/2018 8:39 PM ECG Data Attestation: I personally reviewed and interpreted this ECG as follows: Indication: tachycardia Rate (beats per minute): 137 Rhythm: sinus tachycardia Findings: no ST depression and no ST elevation Additional Comments: 1917 EKG: Sinus tachycardia, rate of 137, QTC interval of 591, no ST elevation, no ST depression. Blood Pressure Blood Pressure Findings: Normal blood pressure MDM Narrative 1914: The patient was evaluated in room B12B, and a complete history and physical examination were performed. The patient was immediately placed on a monitoring specialist. EKGs were conducted and the computer showed an acute RI. I did not appreciate ST depression. I discussed the results with Dr. Guzmán- [facility] Cardiology and she noted that there is no ST elevations or ST depression. 2048: The patient remains tachycardic in 130s, her CTA is negative for PE. I gave the patient a dosage of Labetalol and monitored her response. 2099: The patient's heart rate went down to the 120s, I will repeat labetalol bolus and contacted Cardiology about a potential follow up. 2118: I discussed the case with Dr. Jeff- [facility] Cardiology, who states he was concern about the patient being in atrial flutter that was being truly masked by flecianide. He reviewed the EKGs and he believes the patient is in atrial flutter. He states that the patient could be cardioverted and discharged with Apixiban or admit with Cardizem drip and begin to start on anticoagulants. If the patient was admitted, he recommend anticoagulantion with Apixaban and not heparin. I discussed these options with the patient. I did mention the risk of possible of embolic stroke since she is not currently on anticoagulants. The patient agreed to Cardizem drip and admission to cardiology monitored. Dr. Martinez. 2149: Status post 15 mg of labetalol IV push, the patient's heart rate is improved 90-105. Given this the Cardizem drip will be held at this time and if her heart rate increases again she will be started on the Cardizem drip. Impression & Plan Atrial flutter Critical Care Time I have personally spent 64 minutes of critical care time in the direct management of this patient. This includes bedside care, interpretation of diagnostic studies, and testing, discussion with consultants, patient, and family members, and other required patient management activities. This 64 min utes is in excess of all separately billable procedures. Critical Care Time: Yes Total Critical Care Time: 64 Discharge Plan Visit Data Chief Complaint: Tachycardia Stated Complaint: HIGH RESTING HR 130-145 ED Provider: Miguel Terry Discharge Problem: Atrial flutter Patient Disposition: Being Evaluated by Hospitalist Forms Stand Alone Forms: [facility] [employer] Prescriptions Prescriptions: No Action multivitamin Tablet 1 tab PO HS RF: 0 ipratropium-albuterol 0.5 mg-3 mg(2.5 mg base)/3 mL Solution For Nebulization 3 ml INHALATION DIRECTED PRN (Reason: Shortness Of Breath Or Wheezing) RF: 0 aspirin [Aspir-81] 81 mg Tablet,Delayed Release (Dr/Ec) 81 mg PO HS RF: 0 diltiazem HCl 120 mg Capsule,Extended Release 24 Hr 120 mg PO DAILY RF: 0 flecainide 50 mg Tablet 50 mg PO Q12H RF: 0 budesonide 0.5 mg/2 mL Suspension For Nebulization 0.5 mg INHALATION BID RF: 0 montelukast [Singulair] 10 mg Tablet 10 mg PO HS RF: 0 albuterol sulfate [ProAir HFA] 90 mcg/actuation Hfa Aerosol Inhaler 1 - 2 puff INHALATION DIRECTED PRN (Reason: Shortness Of Breath Or Wh eezing) RF: 0 loratadine [Claritin] 10 mg Tablet 10 mg PO HS RF: 0 pantoprazole 40 mg Tablet,Delayed Release (Dr/Ec) 40 mg PO DAILY RF: 0 Referrals Referrals: Osbaldo Santoyo MD [Primary Care Provider] - Discharge Problem: Atrial flutter Qualifiers: Atrial flutter type: atypical Qualified Code(s): I48.4 - Atypical atrial flutter The scribe's documentation has been prepared under my direction and personally reviewed by me in its entirety. I confirm that the note above accurately reflects all work, treatment, procedures, and medical decision making performed by me.
[2018-12-17] MEDS ORDERED: ALBUT/IPRATROP 3MG/0.5MG NEB 3 ML VIAL INH PRN (23:37)
[2018-12-17] MEDS ORDERED: ALBUTEROL HFA 8 GM INHALER INH PRN (23:37)
[2018-12-17] MEDS ORDERED: BUDESONIDE 0.5 MG/2 ML VIAL (PULMICORT) INH SCH (23:45)
--- NOTE | 2018-12-17 23:45 | History & Physical Report ---
Date of Service December 17, 2018 Assessment & Plan (1) Atrial flutter: Pleasant 63yoF PMH afib, asthma, GERD,admitted 12/17/18 in atrial flutter with variable block. Atrial flutter/pAF -Pt started on cardizem drip in ER -ER discussed with cardio: pt started on apixiban, NO heparin initiated -Cardiology consult placed -For possible cardioversion -Echo ordered -Home meds include cardizem and flecainide, asa Asthma -Pt notes finally under control -Uses advair 500/50 and singular -Will order home budesonide, pulmicort, duoneb, proair prn GERD -Previously took protonix, now off with diet changes -Monitor Code: full Dispo: tele DVTP: apixaban (2) Afib: (3) Asthma: (4) GERD (gastroesophageal reflux disease): History of Present Illness Chief Complaint: Tachycardia Primary Care Provider: Osbaldo Santoyo MD Pt is a pleasant 63yo F H Afib on asa/cardizem/flecainide, asthma, GERD, who presents with persistent 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 She notes that her iWatch told her that despite resting, her heart rate was elevated. She states she was not symptomatic, and reports she can usually tell when she has palpitations. She denies lightheadedness, syncope, chest pain, nausea, vomiting. She notes that she checked her monitor at home and it did not indicate she was in afib, just sinus tachy. She notes when she would go from laying down to standing her rate would go from 130 to 150. After looking online, she found a source which told her that because it was persisting she should go to the ER. In the ER, she was found to be in sinus tachycardia rate 130s, given fluids and ativan, which did not help her rates. CTA was negative for PE. Labetalol and fluids decreased her HR to the 120s only. Cardiology was sidelined, who looked at EKG and noted that due to her flecainide use, the medication was likely masking atrial flutter. She was given 2 options of either cardioversion in the ER and starting on apixiban with discharge home, or to be placed on a cardizem drip, started on apixaban, and assessed by cardiology in the morning (which she opted for). No heparin was recommended. Patient has no artificial valves. Her rates have been coming down since starting the cardizem drip. She remains asymptomatic. Follows with Dr. Manzo for cardiology. Allergies Allergy/AdvReac Type Severity Reaction Status Date / Time nickel Allergy Mild ITCHING Verified 12/19/18 11:39 AND SKIN IRRITATION thimerosal Allergy Mild EYE REDNESS Verified 12/19/18 11:39 Home Medications Home Medications Medication Instructions Recorded Confirmed Type albuterol sulfate [ProAir HFA] 1 - 2 puff INHALATION DIRECTED 12/17/18 12/19/18 History PRN aspirin [Aspir-81] 81 mg PO HS 12/17/18 12/19/18 History budesonide 0.5 mg INHALATION BID 12/17/18 12/19/18 History flecainide 50 mg PO Q12H 12/17/18 12/19/18 History ipratropium-albuterol 3 ml INHALATION DIRECTED PRN 12/17/18 12/19/18 History loratadine [Claritin] 10 mg PO HS 12/17/18 12/19/18 History montelukast [Singulair] 10 mg PO HS 12/17/18 12/19/18 History multivitamin 1 tab PO HS 12/17/18 12/19/18 History pantoprazole 40 mg PO DAILY 12/17/18 12/19/18 History apixaban 5 mg PO BID #60 tab 12/18/18 12/19/18 Rx diltiazem HCl 300 mg PO DAILY #30 cap 12/18/18 12/19/18 Rx levothyroxine [Synthroid] 25 mcg PO DAILY #30 tab 12/18/18 12/19/18 Rx Past Med/Surg History Medical History Atrial fibrillation (Chronic) Atrial flutter Social History Preferred Language: Gibraltarian Communication Ability: Effective 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 Beliefs That Will Affect Care: None Current Living Situation: Spouse Other Information That Helps Us Care for You: No Feels Safe at Home: Yes Safety Concerns: Feels Safe At This Time Smoking Status: Never smoker Hx Alcohol Use: No Hx Substance Use: No Review of Systems Review of Systems: All systems reviewed & are unremarkable except as noted in HPI & below Respiratory: + cough and + dyspnea chronic asthma, just flaring as she has missed her evening doses of asthma meds Cardiovascular: no chest pain, no palpitations and no edema Gastrointestinal: no abdominal pain Neurologic: no dizziness and no headache(s) Physical Exam Constitutional: WD/WN, vitals as above + obese, well groomed and comfortable Eyes: PERRL, conjunctivae normal, anicteric sclerae ENMT: external ear and nose normal, oropharynx normal Neck: normal visual inspection Respiratory: normal respiratory effort, lungs clear to auscultation Cardiovascular: Rate/Rhythm: + tachycardic and + irregularly irregular Heart Sounds: no murmur Vessels: no JVD Extremities: no calf tenderness Gastrointestinal (Abdomen): normal bowel sounds, soft, nontender, no hepatosplenomegaly Musculoskeletal: no cyanosis or clubbing, extremities motor strength 5/5 Skin: no rashes, warm and dry Neurologic: PERRL, EOMI, accommodation nl, no face palsy, no dysarthria Psychiatric: A+Ox3, euthymic affect Results & Data Vital Signs (Past 12 Hours) Vital Signs Temp Pulse Pulse Resp BP BP Pulse Ox 12/17/18 23:00 128 H 25 H 12/17/18 22:31 128 H 18 100/84 12/17/18 22:30 130 H 13 12/17/18 22:26 129 H 18 99/84 L 12/17/18 22:22 93 H 19 114/85 12/17/18 22:01 113 H 19 92/80 L 12/17/18 21:31 99 H 14 101/76 98 12/17/18 21:15 127 H 16 105/77 12/17/18 21:01 125 H 14 113/75 12/17/18 20:49 130 H 17 114/88 12/17/18 20:31 131 H 13 101/90 12/17/18 20:30 131 H 13 12/17/18 20:19 131 H 14 123/106 H 98 12/17/18 19:28 136 H 97 12/17/18 19:19 137 H 17 165/114 H 99 12/17/18 19:06 36.9 C 139 H 20 95 Laboratory Results 12/17/18 12/17/18 12/17/18 Range/Units 19:25 19:18 19:18 WBC (4.8-10.8) K/uL RBC (4.2-5.4) M/uL Hgb (12.0-16.0) g/dL Hct (37-47) % MCV (80-100) fL MCH (25-34) pg MCHC (32-36) g/dL RDW Std Deviation (36.4-46.3) fL RDW Coeff of Jaun (11.5-14.5) % Plt Count (130-400) K/uL MPV (7.4-10.4) fL Immature Gran % (Auto) % Neut % (Auto) % Lymph % (Auto) % [place] % (Auto) % Eos % (Auto) % Baso % (Auto) % Immature Gran # (Auto) (0.00-0.02) K/uL Neut # (Auto) (1.4-6.5) K/uL Lymph # (Auto) (1.2-3.4) K/uL [place] # (Auto) (0.11-0.59) K/uL Eos # (Auto) (0-0.5) K/uL Baso # (Auto) (0-0.2) K/uL PT 9.8 (9.0-12.0) Seconds INR 1.0 (0.9-1.1) APTT 26.6 (21.0-31.0) Seconds PTT Ratio 1.0 Sodium 139 (136-145) mmol/L Potassium 4.0 (3.5-5.1) mmol/L Chloride 107 (98-107) mmol/L Carbon Dioxide 23 (21-32) mmol/L Anion Gap 9.0 (3-11) BUN 18 (7-18) mg/dl Creatinine 0.84 (0.6-1.2) mg/dl Est Cr Clr Drug Dosing 92.0 ml/min Est GFR ( Amer) 86.3 Est GFR (Non-Af Amer) 74.5 BUN/Creatinine Ratio 21.8 H (10-20) Glucose 141 H (70-99) mg/dl Calcium 9.4 (8.5-10.1) mg/dl Magnesium 2.2 (1.8-2.4) mg/dl POC Troponin I < 0.03 (0-0.045) ng/ml Troponin I < 0.015 (0-0.045) ng/ml Lipase 135 (73-393) U/L 12/17/18 Range/Units 19:18 WBC 9.86 (4.8-10.8) K/uL RBC 4.82 (4.2-5.4) M/uL Hgb 14.1 (12.0-16.0) g/dL Hct 40.8 (37-47) % MCV 84.6 (80-100) fL MCH 29.3 (25-34) pg MCHC 34.6 (32-36) g/dL RDW Std Deviation 44.4 (36.4-46.3) fL RDW Coeff of Jaun 14.3 (11.5-14.5) % Plt Count 237 (130-400) K/uL MPV 9.5 (7.4-10.4) fL Immature Gran % (Auto) 0.2 % Neut % (Auto) 54.9 % Lymph % (Auto) 37.5 % [place] % (Auto) 6.7 % Eos % (Auto) 0.0 % Baso % (Auto) 0.7 % Immature Gran # (Auto) 0.02 (0.00-0.02) K/uL Neut # (Auto) 5.41 (1.4-6.5) K/uL Lymph # (Auto) 3.70 H (1.2-3.4) K/uL [place] # (Auto) 0.66 H (0.11-0.59) K/uL Eos # (Auto) 0.00 (0-0.5) K/uL Baso # (Auto) 0.07 (0-0.2) K/uL PT (9.0-12.0) Seconds INR (0.9-1.1) APTT (21.0-31.0) Seconds PTT Ratio Sodium (136-145) mmol/L Potassium (3.5-5.1) mmol/L Chloride (98-107) mmol/L Carbon Dioxide (21-32) mmol/L Anion Gap (3-11) BUN (7-18) mg/dl Creatinine (0.6-1.2) mg/dl Est Cr Clr Drug Dosing ml/min Est GFR ( Amer) Est GFR (Non-Af Amer) BUN/Creatinine Ratio (10-20) Glucose (70-99) mg/dl Calcium (8.5-10.1) mg/dl Magnesium (1.8-2.4) mg/dl POC Troponin I (0-0.045) ng/ml Troponin I (0-0.045) ng/ml Lipase (73-393) U/L Medications Administered Current Inpatient Medications Albuterol (Duoneb) 3 ml INH DIRECTED PRN PRN Reason: Shortness Of Breath Or Wheezing Stop: 01/16/19 23:36 Apixaban (Eliquis) 5 mg PO BID [place] Stop: 01/16/19 21:44 Last Admin: 12/17/18 21:51 Dose: 5 mg Documented by: Aspirin (Ecotrin Ectab) 81 mg PO HS [place] Stop: 01/17/19 20:59 Budesonide (Pulmicort Respules) 0.5 mg INH BID [place] Stop: 01/16/19 23:44 Diltiazem HCl (Tiazac) 120 mg PO DAILY [place] Stop: 01/17/19 08:59 Flecainide Acetate (Tambocor) 50 mg PO Q12H [place] Stop: 01/16/19 23:44 Sodium Chloride (Nss) 500 mls @ 125 mls/hr IV .Q4H [place] Stop: 01/16/19 20:59 Last Admin: 12/17/18 21:25 Dose: 125 mls/hr Documented by: Diltiazem HCl 125 mg/ Dextrose 125 mls @ 5 mls/hr IV .Q24H [place]; Protocol Stop: 01/16/19 21:44 Last Admin: 12/17/18 22:22 Dose: 5 mg/hr, 5 mls/hr Documented by: Ioversol (Optiray 320 125ml) 120 ml IV ONCE PRN PRN Reason: Interaction Checking Stop: 12/21/18 20:08 Last Admin: 12/17/18 20:10 Dose: 120 ml Documented by: Loratadine (Claritin) 10 mg PO HS [place] Stop: 01/17/19 20:59 Montelukast Sodium (Singulair) 10 mg PO HS [facility] Stop: 01/17/19 20:59 Multivitamins (Multivitamin Tab) 1 tab PO [facility] Stop: 01/17/19 20:59 Non-Formulary Medication (Albuterol Sulfate) 1 - 2 puffs INH Q2H PRN PRN Reason: Shortness Of Breath Or Wheezing Stop: 01/16/19 23:36 Pantoprazole Sodium (Protonix) 40 mg PO DAILY [facility] Stop: 01/17/19 08:59 Fluticasone/Salmeterol (Advair Diskus 500/50) 1 puffs INH BID [facility] Stop: 01/17/19 00:14 Code Status & VTE Plan Code Status full VTE Prophylaxis Plan VTE Prophylaxis will be ordered: Yes Supervising Physician Co-Signing Physician Notes Attending addendum: I have physically seen this patient, have supervised the medical residents activities, and agree with the H&P unless as otherwise noted. Assessment and Plan: Paroxysmal atrial flutter- The patient will be admitted to telemetry for serial cardiac enzymes, serial EKG's, cardiac rhythm monitoring and a 2-D echocardiogram with Dopplers. Continue Cardizem drip begun in the ED. Continue apixaban as per ED conversation with cardiology consult. Consult cardiology. Continue flecainide and aspirin. Remainder of orders and notations as noted. Resident Activity Tracking Resident Involvement: Resident Care Provided Care Provided: Adult Hospital Medicine (1) Atrial flutter Atrial flutter type: atypical Qualified Code(s): I48.4 - Atypical atrial flutter
[2018-12-18] MEDS ORDERED: MONTELUKAST SODIUM 10 MG TABLET PO STA (00:14)
[2018-12-18] MEDS ORDERED: BUDESONIDE 0.5 MG/2 ML VIAL (PULMICORT) INH PRN (00:43)
[2018-12-18] MEDS: FLUTICASONE/SALMETEROL (ADVAIR) 500/50 INH 14 PUFF INH SCH ×2 (01:00→07:49)
[2018-12-18] MEDS ORDERED: ALUMINUM/MAGNESIUM SUSP 30 ML UDC PO PRN (01:23)
[2018-12-18] MEDS ORDERED: ACETAMINOPHEN 325 MG TAB PO PRN (01:23)
[2018-12-18] MEDS ORDERED: MAGNESIUM HYDROXIDE SUSP 30 ML UDC PO PRN (01:23)
[2018-12-18] MEDS ORDERED: POLYETHYLENE (MIRALAX) 17 GM PACK PO PRN (01:23)
[2018-12-18] MEDS: SODIUM CHLORIDE 0.9% 1000ML 1,000 ML IV SCH ×2 (01:45→08:13)
[2018-12-18] MEDS: FLECAINIDE ACETATE 100 MG TABLET PO SCH ×2 (02:08→07:49)
[2018-12-18] MEDS: SODIUM CHLORIDE 0.9% 500 ML IV SCH (04:54)
[2018-12-18 05:45] LABS: Basophils # (auto) 0.04 K/uL (0-0.2); Basophils % (auto) 0.5 %; Hematocrit (blood only) 36.6 % (37-47); Hemoglobin 12.4 g/dL (12.0-16.0); Immature Granulocytes # (auto) 0.03 K/uL (0.00-0.02); Immature Granulocytes % (auto) 0.3 %; Lymphocytes # (auto) 3.09 K/uL (1.2-3.4); Lymphocytes % (auto) 35.5 %; Mean Corpuscular Hgb Conc 33.9 g/dL (32-36); Mean Corpuscular Volume 84.5 fL (80-100); Mean Platelet Volume 9.4 fL (7.4-10.4); Monocytes # (auto) 0.46 K/uL (0.11-0.59); Monocytes % (auto) 5.3 %; Neutrophils # (auto) 5.08 K/uL (1.4-6.5); Neutrophils % (auto) 58.4 %; Platelet Count 201 K/uL (130-400); RDW Coefficient of Variation 14.3 % (11.5-14.5); RDW Standard Deviation 44.4 fL (36.4-46.3); Red Blood Count 4.33 M/uL (4.2-5.4)
[2018-12-18 06:17] LABS: BUN Creatinine Ratio 18.2 (10-20); Calcium 8.3 mg/dl (8.5-10.1); Creatinine Clr Calc Pharmacy 102.6 ml/min; Est GFR (African American) 100.6; Est GFR (Non-African American) 86.8; Potassium 3.7 mmol/L (3.5-5.1)
[2018-12-18] MEDS: APIXABAN 2.5 MG TAB PO SCH (08:12)
[2018-12-18] MEDS ORDERED: PANTOprazole 40 MG TAB PO SCH (09:00)
[2018-12-18] MEDS ORDERED: dilTIAZem ER 120 MG CAPCR PO SCH (09:00)
--- NOTE | 2018-12-18 09:28 | Cardiology Consultation ---
Date of Consultation December 18, 2018 Assessment & Plan (1) Atrial flutter: She carries a history of paroxysmal atrial fibrillation for which she takes flecainide 50 mg BID and diltiazem 120 mg daily as an outpatient. She is not on chronic anticoagulation therapy given a CHADSVASc score of only 1 given her gender. She presented yesterday in atrial flutter with rates up to the 140s- 150s. She has been initiated on a diltiazem drip with better heart rate control. She has also been started on Eliquis 5 mg BID. Given the fact that it is not definitively known when she went into the atrial flutter, would not recommend cardioversion at this time. Would instead attempt rate control by increasing her PO diltiazem dose to 300 mg daily. Will give a dose of the PO diltiazem now and discontinue the IV diltiazem. If her rate is adequately controlled with the increased dose of the oral medication, she can be discharged home with close follow-up as an outpatient. Would continue her flecainide at the current dosing of 50 mg BID. Would also continue anticoagulation therapy. If she does not spontaneously convert in the future, would consider elective electrical cardioversion as an outpatient after 1 month of adequate anticoagulation therapy. Patient was seen and discussed with Dr. Degroot, and the plan was made in collaboration with him. Supervising Physician Co-Signing Physician Notes Patient seen and examined, discussed findings with the patient and her family in the room. Agree with above consultation and reviewed with Doris. History of Present Illness Reason for Consultation: Atrial flutter Requesting Physician: Dr. Myles History of Present Illness Mrs. Hamm is a 63-year-old female with a past medical history significant for paroxysmal atrial fibrillation and asthma who was admitted last evening in the setting of atrial flutter with RVR. Her primary branch associate teller is Dr. Manzo. Her atrial fibrillation was diagnosed on 12/24/2016 when she presented to the ED at [facility] with complaints of tachycardia and palpitations. ECG at that time showed atrial fibrillation with a rapid ventricular response rate of 177 bpm. She was initiated on a Diltiazem drip and spontaneously converted to NSR. She was not admitted to the hospital at that time but was seen as an outpatient for a cardiology consult on 12/27/2016. Upon further questioning, it was discovered that she had had intermittent symptoms of tachycardia and palpitations for the preceding 1-2 years. These episodes had never been documented on a home monitor or electrocardiogram. She was initiated on Diltiazem 120 mg daily for rate control of any recurrent episodes of atrial fibrillation. Given her CHADSVASc score of 1 (female), she was not a candidate for anticoagulation therapy, but she was advised to begin low dose aspirin. An echocardiogram performed on 12/17 showed normal biventricular systolic function, LV EF 60-65%, normal chamber dimensions, and no significant valvular abnormalities. She presented for an acute cardiology visit June 29, 2017 with complaints of increasing palpitations in the previous 2 months. The episodes were lasting 6-7 hours. At that time she was started on flecainide 50 milligrams b.i.d. An exercise stress echocardiogram performed November 01, 2017 for complaints of chest tightness and dyspnea was negative for evidence of myocardial ischemia at 88 percent maximum predicted heart rate. Resting echocardiogram showed normal biventricular systolic function, mild LVH, mild tricuspid regurgitation. Normal chamber dimensions. More recently, she was in her usual state of health until around 12-1 pm yesterday when her Apple watch alerted her that her heart rate was elevated up to 145-150 bpm. She states that she noted some mild palpitations, but otherwise felt well. She denies any associated lightheadedness, presyncope, shortness of breath, or chest pain. She tried taking an extra dose of Flecainide and Diltiazem, as she typically does when she goes out of rhythm, but her heart rate remained elevated. She then tried taking another dose of Diltiazem, but her rate continued to stay elevated. She therefore proceeded to the ED for further evaluation around 7 pm. On arrival, she was found to be in an atrial flutter with RVR and was initiated on a diltiazem drip. She was also initiated on Eliquis. She is otherwise asymptomatic. She reports that she was struggling with asthma for about a month recently, but this has now resolved. She denies orthopnea, PND, or edema. He denies abnormal bleeding such as melena, hematochezia, or hematuria. He denies cerebrovascular symptoms. She remains active swimming for 40 minutes 2-3 days per week. As noted in HPI. All other ROS are reviewed and otherwise negative at this time. Family history: No family history of premature CAD. Social history: She is and has 2 children. 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 Remote history of smoking. She occasional drinks alcohol. Allergies Allergy/AdvReac Type Severity Reaction Status Date / Time nickel Allergy Mild ITCHING Verified 12/17/18 19:52 AND SKIN IRRITATION thimerosal Allergy Mild EYE REDNESS Verified 12/17/18 19:52 Home Medications Home Medications Medication Instructions Recorded Confirmed Type albuterol sulfate [ProAir HFA] 1 - 2 puff INHALATION DIRECTED 12/17/18 12/17/18 History PRN aspirin [Aspir-81] 81 mg PO HS 12/17/18 12/17/18 History budesonide 0.5 mg INHALATION BID 12/17/18 12/17/18 History flecainide 50 mg PO Q12H 12/17/18 12/17/18 History ipratropium-albuterol 3 ml INHALATION DIRECTED PRN 12/17/18 12/17/18 History loratadine [Claritin] 10 mg PO HS 12/17/18 12/17/18 History montelukast [Singulair] 10 mg PO HS 12/17/18 12/17/18 History multivitamin 1 tab PO HS 12/17/18 12/17/18 History pantoprazole 40 mg PO DAILY 12/17/18 12/17/18 History apixaban 5 mg PO BID #60 tab 12/18/18 Rx diltiazem HCl 300 mg PO DAILY #30 cap 12/18/18 Rx levothyroxine [Synthroid] 25 mcg PO DAILY #30 tab 12/18/18 Rx Patient History Medical History Atrial fibrillation (Chronic) Social History Preferred Language: Cypriot Communication Ability: Effective Food Preparer Required: No Beliefs That Will Affect Care: None Current Living Situation: Spouse Other Information That Helps Us Care for You: No Feels Safe at Home: Yes Safety Concerns: Feels Safe At This Time Smoking Status: Never smoker Hx Alcohol Use: No Hx Substance Use: No Physical Exam Physical Exam: Constitutional: Alert, oriented, in no acute distress HEENT: Head is atraumatic and normocephalic. EOMs intact. Sclera anicteric. Face is symmetric. No perioral cyanosis. Mucous membranes moist. Neck: Supple, no JVD, no carotid bruits Pulmonary: Normal respiratory effort, clear to auscultation bilaterally Cardiac: Tachycardic, irregular, normal S1 and S2, no gallops, no rubs, no murmurs Extremities: No clubbing, cyanosis, or edema. Pulses 2+ and symmetric Abdomen: Normal bowel sounds, soft, non-tender, no abdominal mass palpated Skin: Normal skin color, turgor, and pigmentation, no rash, no skin lesions Neurological: Oriented to person, place, and time Results & Data Vital Signs (Past 12 Hours) Vital Signs Temp Pulse Pulse Pulse Resp BP BP 12/18/18 08:00 81 12/18/18 07:52 36.4 C L 130 H 22 123/89 12/18/18 05:27 132 H 110/72 12/18/18 04:29 128 H 128/81 12/18/18 03:08 36.8 C 118 H 19 108/72 12/18/18 01:53 128 H 12/18/18 01:27 36.7 C 127 H 18 139/95 12/18/18 01:08 92/74 L 12/18/18 01:07 103/35 L 12/18/18 01:00 128 H 17 12/18/18 00:30 111 H 18 12/18/18 00:00 126 H 18 12/17/18 23:21 127 H 13 101/79 12/17/18 23:01 127 H 22 119/81 12/17/18 23:00 128 H 25 H 12/17/18 22:31 128 H 18 100/84 12/17/18 22:30 130 H 13 12/17/18 22:26 129 H 18 99/84 L 12/17/18 22:22 93 H 19 114/85 12/17/18 22:01 113 H 19 92/80 L 12/17/18 21:31 99 H 14 101/76 Pulse Ox 12/18/18 08:00 12/18/18 07:52 96 12/18/18 05:27 12/18/18 04:29 12/18/18 03:08 94 12/18/18 01:53 12/18/18 01:27 95 12/18/18 01:08 12/18/18 01:07 12/18/18 01:00 12/18/18 00:30 12/18/18 00:00 12/17/18 23:21 12/17/18 23:01 12/17/18 23:00 12/17/18 22:31 12/17/18 22:30 12/17/18 22:26 12/17/18 22:22 12/17/18 22:01 12/17/18 21:31 98 Laboratory Results Laboratory Results WBC 8.70 K/uL (4.8-10.8) 12/18/18 05:28 RBC 4.33 M/uL (4.2-5.4) 12/18/18 05:28 Hgb 12.4 g/dL (12.0-16.0) 12/18/18 05:28 Hct 36.6 % (37-47) L 12/18/18 05:28 MCV 84.5 fL (80-100) 12/18/18 05:28 MCH 28.6 pg (25-34) 12/18/18 05:28 MCHC 33.9 g/dL (32-36) 12/18/18 05:28 RDW Std Deviation 44.4 fL (36.4-46.3) 12/18/18 05:28 RDW Coeff of Jaun 14.3 % (11.5-14.5) 12/18/18 05:28 Plt Count 201 K/uL (130-400) 12/18/18 05:28 MPV 9.4 fL (7.4-10.4) 12/18/18 05:28 Immature Gran % (Auto) 0.3 % 12/18/18 05:28 Neut % (Auto) 58.4 % 12/18/18 05:28 Lymph % (Auto) 35.5 % 12/18/18 05:28 [place] % (Auto) 5.3 % 12/18/18 05:28 Eos % (Auto) 0.0 % 12/18/18 05:28 Baso % (Auto) 0.5 % 12/18/18 05:28 Immature Gran # (Auto) 0.03 K/uL (0.00-0.02) H 12/18/18 05:28 Neut # (Auto) 5.08 K/uL (1.4-6.5) 12/18/18 05:28 Lymph # (Auto) 3.09 K/uL (1.2-3.4) 12/18/18 05:28 [place] # (Auto) 0.46 K/uL (0.11-0.59) 12/18/18 05:28 Eos # (Auto) 0.00 K/uL (0-0.5) 12/18/18 05:28 Baso # (Auto) 0.04 K/uL (0-0.2) 12/18/18 05:28 PT 9.8 Seconds (9.0-12.0) 12/17/18 19:18 INR 1.0 (0.9-1.1) 12/17/18 19:18 APTT 26.6 Seconds (21.0-31.0) 12/17/18 19:18 PTT Ratio 1.0 12/17/18 19:18 Sodium 140 mmol/L (136-145) 12/18/18 05:28 Potassium 3.7 mmol/L (3.5-5.1) 12/18/18 05:28 Chloride 112 mmol/L (98-107) H 12/18/18 05:28 Carbon Dioxide 20 mmol/L (21-32) L 12/18/18 05:28 8.0 (3-11) 12/18/18 05:28 BUN 13 mg/dl (7-18) 12/18/18 05:28 0.74 mg/dl (0.6-1.2) 12/18/18 05:28 Est Cr Clr Drug Dosing 102.6 ml/min 12/18/18 05:28 Est GFR ( Amer) 100.6 12/18/18 05:28 Est GFR (Non-Af Amer) 86.8 12/18/18 05:28 18.2 (10-20) 12/18/18 05:28 Glucose 137 mg/dl (70-99) H 12/18/18 05:28 Calcium 8.3 mg/dl (8.5-10.1) L 12/18/18 05:28 Magnesium 2.2 mg/dl (1.8-2.4) 12/17/18 19:18 POC Troponin I < 0.03 ng/ml (0-0.045) 12/17/18 19:25 < 0.015 ng/ml (0-0.045) 12/17/18 19:18 135 U/L (73-393) 12/17/18 19:18 TSH 6.090 uIu/ml (0.300-4.500) H 12/18/18 07:19 Diagnostic Findings Chest CTA: 1. There is no evidence of pulmonary embolus in the main, lobar, or segmental pulmonary arteries. 2. There is no airspace consolidation or pleural effusion. 3. Hepatomegaly and hepatic steatosis. CXR: No active disease in the chest. ECG: Atrial flutter with a ventricular response rate of 137 bpm. Telemetry: Atrial flutter with rates in the 100s-130s overnight. This morning, her rate has been better controlled in the 70s-90s on average. (1) Atrial flutter Atrial flutter type: atypical Qualified Code(s): I48.4 - Atypical atrial flutter
[2018-12-18] MEDS: dilTIAZem HCl 125 MG in DEXTROSE 5% 100 ML IV SCH (09:38)
[2018-12-18] MEDS ORDERED: dilTIAZem HCL 300 MG CAPCR PO SCH (10:30)
--- NOTE | 2018-12-18 11:47 | Discharge Summary ---
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 She notes that her iWatch told her that despite resting, her heart rate was elevated. She states she was not symptomatic, and reports she can usually tell when she has palpitations. She denies lightheadedness, syncope, chest pain, nausea, vomiting. She notes that she checked her monitor at home and it did not indicate she was in afib, just sinus tachy. She notes when she would go from laying down to standing her rate would go from 130 to 150. After looking online, she found a source which told her that because it was persisting she should go to the ER. In the ER, she was found to be in sinus tachycardia rate 130s, given fluids and ativan, which did not help her rates. CTA was negative for PE. Labetalol and fluids decreased her HR to the 120s only. Cardiology was sidelined, who looked at EKG and noted that due to her flecainide use, the medication was likely masking atrial flutter. She was given 2 options of either cardioversion in the ER and starting on apixiban with discharge home, or to be placed on a cardizem drip, started on apixaban, and assessed by cardiology in the morning (which she opted for). No heparin was recommended. Patient has no artificial valves. Her rates have been coming down since starting the cardizem drip. She remains asymptomatic. Follows with Dr. Manzo for cardiology. Principal Diagnosis a flutter Discharge Exam Constitutional WD/WN, vitals as above Eyes PERRL, conjunctivae normal, anicteric sclerae ENMT external ear and nose normal, oropharynx normal Respiratory normal respiratory effort, lungs clear to auscultation Cardiovascular irregularly irregular Gastrointestinal (Abdomen) normal bowel sounds, soft, nontender, no hepatosplenomegaly Skin no rashes, warm and dry Psychiatric A+Ox3, euthymic affect Discharge Data Allergies Allergy/AdvReac Type Severity Reaction Status Date / Time nickel Allergy Mild ITCHING Verified 12/19/18 11:39 AND SKIN IRRITATION thimerosal Allergy Mild EYE REDNESS Verified 12/19/18 11:39 Consultations 12/17/18 21:37 ED Decision to Admit Stat 12/18/18 01:23 Consult Cardiology Routine Ordered Studies 12/17/18 19:18 CT angio chest PE protocol Stat Hospital Course (1) Atrial flutter: 63yoF PMH afib (on asa/cardizem/flecainide), asthma, GERD, admitted 12/17/18 to [facility] in atrial flutter with variable block. 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 In the ER, she was found to be in A flutted with rates up to the 140s-150s. Pt was given fluids and ativan, which did not help her rates. CTA was negative for PE. Labetalol and fluids decreased her HR to the 120s only. Cardiology was sidelined, who looked at EKG and noted that due to her flecainide use, the medication was likely masking atrial flutter. She was given 2 options of either cardioversion in the ER and starting on apixiban with discharge home, or to be placed on a cardizem drip, started on apixaban, and assessed by cardiology in the morning (which she opted for). No heparin was recommended. Patient has no artificial valves. Pt follows with Dr. Manzo for cardiology. The following was the medical management during stay here. Atrial flutter/pAF -Pt was started on cardizem drip in ER. Her rates had been coming down since starting the cardizem drip and she remained asymptomatic throughout stay here. In the ER, pt was started on Apixiban 5 mg BID, no heparin initiated. An ECHO was done, results pending at time of note. Pt has a history of paroxysmal atrial fibrillation for which she takes flecainide 50 mg BID and diltiazem 120 mg daily as an outpatient. She is not on chronic anticoagulation therapy given a CHADSVASc score of only 1 given her gender. Cardiology was consulted, and stated that given the fact that it is not definitively known when she went into the atrial flutter, would not recommend cardioversion at this time. We will instead attempt rate control by increasing her PO diltiazem dose to 300 mg daily. Pt's rate were adequately controlled with the increased dose of the oral medication, and planned for discharged home with close follow-up as an outpatient. We will continue her flecainide at the current dosing of 50 mg BID along with continued anticoagulation therapy. If she does not spontaneously convert in the future, will consider elective electrical cardioversion as an outpatient after 1 month of adequate anticoagulation therapy. Asthma -This was well under control here. Pt uses advair 500/50 and singular and we ordered home budesonide, pulmicort, duoneb, proair prn. At time of d/c, pt had no other acute concerns or complaints. Total Time Total Time Spent Total Time Spent (In Minutes): 35 min Discharge Plan Discharge Items Patient Disposition: Home - Self-Care Reason For Visit: A FLUTTER Discharge Diagnosis: A flutter Discharge Goals: Improve disease control and Improve function Activity: Per 'Additional Instructions' section Non-emergency contact: Primary Care Provider and [facility] Manager Call non-emergency contact if: you have any medication questions and your symptoms worsen Follow-up/Referrals: Osbaldo Santoyo MD [Primary Care Provider] - Diet: Regular Addtl Provider Instructions: You were admitted for concerns for a high heart rate, and were found to be in Atrial flutter. Please follow the below instructions on d/c: -You will continue diltiazem, but at a higher dose (300 mg daily) -You will continue the anticoagulation medication Apixiban 5 mg twice a day. You will take this for one month, and will follow up with cardiology at this time to see if you need electrical cardioversion as an outpatient -You will continue flecainide at the current dosing of 50 mg twice a day -If you notice similar symptoms that brought you into the ER in the first place persist, then please come back in -You will also start another new medication synthroid 25 mcg daily. This may help with your low thyroid complaints of fatigue. -Follow up with your PCP within one week of discharge Prescriptions: New diltiazem HCl 300 mg capsule,extended release 24 hr 300 mg PO DAILY Qty: 30 RF: 0 apixaban 5 mg tablet 5 mg PO BID Qty: 60 RF: 0 levothyroxine [Synthroid] 25 mcg tablet 25 mcg PO DAILY Qty: 30 RF: 0 Continued multivitamin Tablet 1 tab PO HS RF: 0 ipratropium-albuterol 0.5 mg-3 mg(2.5 mg base)/3 mL Solution For Nebulization 3 ml INHALATION DIRECTED PRN (Reason: Shortness Of Breath Or Wheezing) RF: 0 aspirin [Aspir-81] 81 mg Tablet,Delayed Release (Dr/Ec) 81 mg PO HS RF: 0 flecainide 50 mg Tablet 50 mg PO Q12H RF: 0 budesonide 0.5 mg/2 mL Suspension For Nebulization 0.5 mg INHALATION BID RF: 0 montelukast [Singulair] 10 mg Tablet 10 mg PO HS RF: 0 albuterol sulfate [ProAir HFA] 90 mcg/actuation Hfa Aerosol Inhaler 1 - 2 puff INHALATION DIRECTED PRN (Reason: Shortness Of Breath Or Wheezing) RF: 0 loratadine [Claritin] 10 mg Tablet 10 mg PO HS RF: 0 pantoprazole 40 mg Tablet,Delayed Release (Dr/Ec) 40 mg PO DAILY RF: 0 Discontinued diltiazem HCl 120 mg Capsule,Extended Release 24 Hr 120 mg PO DAILY RF: 0 Stand-Alone Forms: [facility] Discharge Orders: Discharge Order (Routine); Ordered 12/18/18 Ordered By: Deon Obrien Admission Data Admit Date/Time: 12/18/18 00:15 Attending Provider: Chayito Bejarano Admit Provider: Kyleigh Myles Primary Care Provider: Osbaldo Santoyo Other Providers: Bk Alexander ; Alfonso Degroot Service: Telemetry Other Interventions: Discharge Summary Assessment (RN) Last Done: 12/18/18 11:53 DC Date/Time DO NOT enter until pt leaves facility: 12/18/18 12:33 Supervising Physician Co-Signing Physician Notes Resident Physician Supervision Note: I independently interviewed and examined the patient and verified the cordova history and physical, reviewed labs and image studies, discussed the case with the resident Dr. Obrien and agree with the findings and care plan. Time spent in discharge 35 min Resident Activity Tracking Resident Involvement: Resident Care Provided Care Provided: Adult Hospital Medicine
[2018-12-18] MEDS ORDERED: ASPIRIN 81 MG ECTAB PO SCH (21:00)
[2018-12-18] MEDS ORDERED: MONTELUKAST SODIUM 10 MG TABLET PO SCH (21:00)
[2018-12-18] MEDS ORDERED: MULTIVITAMIN TAB PO SCH (21:00)
[2018-12-18] MEDS ORDERED: LORATADINE 10 MG TAB PO SCH (21:00)
[2018-12-19] MEDS ORDERED: LEVOTHYROXINE SODIUM 25 MCG TABLET PO SCH (06:30)
== END 2018-12-18 12:33 | disposition home or self-care (01) | DRG 310 ==
LOC: ED 19:04 → SUATTDRO 12-18 00:15 → 2S 12-18 00:15
DX: Z79.01 Long term (current) use of anticoagulants; I48.0 Paroxysmal atrial fibrillation; J45.909 Unspecified asthma, uncomplicated; I48.92 Unspecified atrial flutter; Z79.82 Long term (current) use of aspirin; K21.9 Gastro-esophageal reflux disease without esophagitis; Z79.899 Other long term (current) drug therapy

== ENCOUNTER 2019-09-01 18:59 | Inpatient (IN) ==
[2019-09-01] MEDS ORDERED: ACETAMINOPHEN 1,000 MG/100 ML VIAL IV STA (19:24)
[2019-09-01] MEDS ORDERED: SODIUM CHLORIDE 0.9% 1000ML 1,000 ML IV SCH (19:30)
--- NOTE | 2019-09-01 19:42 | XRay Report ---
XR chest 1V portable CLINICAL HISTORY: fever, cough COMPARISON STUDY: 07/24/2019 FINDINGS: The cardiac and mediastinal contours are normal. There is no focal pulmonary consolidation. There is mild interstitial thickening similar to prior studies. There are no pleural effusions. Ther e is no failure.[ IMPRESSION: No active disease in the chest. ACT 112: Negative or not required by law. Electronically signed by: Jah Palomino M.D. 09/01/2019 7:41 PM
--- NOTE | 2019-09-01 19:47 | Emergency Department Note ---
History of Present Illness General Chief complaint: Illness Stated complaint: SINUS INFECTION, MEDS NOT HELPING, FEVER Time Seen by Provider: 09/01/19 19:16 History of Present Illness Maximum Pain Intensity: 4 This 64-year-old female presents the ER with chief complaint of fever. The pat ient states that she has been on doxycycline for a sinus infection. She is on doxycycline. The patient was seen at her PCP yesterday and thought she was getting better. At that time her fever came down with Tylenol. The patient has been taking Tylenol today without any relief of her fever. Last dose was 4 PM. The patient states that the nasal drainage seems to have improved. The patient also has a history of asthma for which she is using her nebulized treatment as directed. She denies any wheezing. The patient denies any shortness of breath. The patient also states that she had the influenza earlier this season. The patient also is complaining of sore throat but denies any ear pain. Home Medications Home Medications Medication Instructions Recorded Confirmed Type albuterol sulfate [ProAir HFA] 1 - 2 puff INHALATION DIRECTED 12/17/18 09/01/19 History PRN aspirin [Aspir-81] 81 mg PO HS 12/17/18 09/01/19 History loratadine [Claritin] 10 mg PO HS 12/17/18 09/01/19 History montelukast 10 mg tablet 10 mg PO HS #90 tab 05/25/19 09/01/19 Rx levothyroxine 25 mcg tablet 25 mcg PO DAILY #30 tab 06/08/19 09/01/19 Rx diltiazem HCl 300 mg capsule,24 300 mg PO DAILY #90 cap 07/08/19 09/01/19 Rx hr,extended release flecainide 50 mg tablet 50 mg PO Q12H #180 tab 07/27/19 09/01/19 Rx fluticasone 500 mcg-salmeterol 50 1 puffs INH BID #60 ea 08/02/19 09/01/19 Rx mcg/dose blistr powdr for inhalation ipratropium 0.5 mg-albuterol 3 mg 3 ml INHALATION DIRECTED PRN 08/02/19 09/01/19 Rx (2.5 mg base)/3 mL nebulization #90 ml soln budesonide 0.5 mg/2 mL suspension 0.5 mg INH BID #60 ml 08/03/19 09/01/19 Rx for nebulization doxycycline hyclate 100 mg tablet 100 mg PO BID #10 tab 08/31/19 09/01/19 Rx apixaban [Eliquis] 0 mg PO BID 09/01/19 09/01/19 History Allergies Allergy/AdvReac Type Severity Reaction Status Date / Time nickel Allergy Mild ITCHING Verified 09/01/19 21:39 AND SKIN IRRITATION thimerosal Allergy Mild EYE REDNESS Verified 09/01/19 21:39 cat dander Allergy Unknown Verified 09/01/19 21:39 house dust mite Allergy Unknown Verified 09/01/19 21:39 mold Allergy Unknown Verified 09/01/19 21:39 pollen extracts Allergy Unknown Verified 09/01/19 21:39 Past Med/Surg History Medical History History of cellulitis right arm History of extrinsic asthma with acute exacerbation Internal hemorrhoids (Acute) Trochanteric bursitis Tubular adenoma of colon (Acute) Surgical History Hx of colonoscopy S/P dilation and curettage S/P laparoscopy with excision of gynecologic lesions Family History Sister Asthma Allergic rhinitis Father Diabetes Mother Non-Hodgkin lymphoma Denies family history of Ovarian cancer Breast cancer Colorectal cancer Social History Preferred Language: Amharic Communication Ability: Effective Code Enforcement Officer Required: No Beliefs That Will Affect Care: None Current Living Situation: Spouse current occupational status: employed 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 [employer] Feels Safe at Home: Yes Smoking Status: Never smoker Hx Alcohol Use: Yes (social) Hx Substance Use: No Review of Systems A total of 10 systems reviewed and were otherwise negative Physical Exam Vital Signs Vital Signs - 24 hr 09/01/19 19:11 09/01/19 20:50 Temperature 39.4 C H Temperature Source Oral Pulse Rate 103 H Pulse Rate [Apical] 91 H Respiratory Rate 18 18 Respiratory Effort / Characteristics Non-Labored Spontaneous Respiratory Depth Normal Respiratory Pattern Regular Blood Pressure 155/96 H Blood Pressure [Left Arm] 169/93 H Blood Pressure Mean 115 Blood Pressure Mean [Left Arm] 118 Blood Pressure Position Sitting Pulse Oximetry 97 93 Oxygen Delivery Method Room Air Room Air Sepsis Recent Fever Within 48 Hours Yes Sepsis Action Taken by Nursing No Action Required PHYSICAL EXAM: Vital Signs were reviewed temperature was elevated 39.4, blood pressure 155/96 pulse 103: Reviewed Nurse's notes and agree. Oxygen saturation is 97 % on room air which is normal . GENERAL: 64-year-old female appears in no acute distress. MENTAL STATUS: Alert, oriented, coherent. EARS: Canals clear. TMs good light reflex, no erythema or fluid level noted. NOSE: Nasal mucosa with moderate erythema engorgement. PHARYNX: Moderate erythema, no edema noted. No exudate noted. Airway is adequate. NECK: Supple, non-tender. No lymphadenopathy noted. LUNGS: Clear to auscultation without wheezes rales or rhonchi. CARDIAC: Regular rate and rhythm without murmur. SKIN: No rashes noted. Course Administered Medications Sodium Chloride (Nss 1000ml) 1,000 mls @ 999 mls/hr IV .Q1H1M ONE Stop: 09/01/19 21:52 Last Admin: 09/01/19 21:20 Dose: 999 mls/hr Documented by: [id number] Discontinued Medications Sodium Chloride (Nss 1000ml) 1,000 mls @ 999 mls/hr IV .Q1H1M [place] Stop: 09/01/19 20:30 Last Infusion: 09/01/19 20:58 Dose: 0 mls/hr Documented by: [id number] Admin: 09/01/19 19:57 Dose: 999 mls/hr Documented by: [id number] Acetaminophen (Ofirmev) 1,000 mg in 100 mls @ 400 mls/hr IV NOW STA Stop: 09/01/19 19:38 Last Infusion: 09/01/19 20:24 Dose: 0 mls/hr Documented by: [id number] Admin: 09/01/19 19:57 Dose: 400 mls/hr Documented by: [id number] Ceftriaxone Sodium (Rocephin) 1,000 mg in 50 mls @ 100 mls/hr IV NOW STA Stop: 09/01/19 21:11 Last Admin: 09/01/19 21:01 Dose: Not Given Documented by: [id number] Piperacillin Sod/Tazobactam Sod (Zosyn) 4.5 gm in 120 mls @ 240 mls/hr IV NOW ONE Stop: 09/01/19 21:21 Last Admin: 09/01/19 21:20 Dose: 240 mls/hr Documented by: [id number] Medical Decision Making Differential Diagnosis Influenza, URI, acute sinusitis, bronchitis, pneumonia Medical Records Attestation: I reviewed the patient's medical records. Home Medications Current Medication List: was personally reviewed by me Laboratory Data Attestation: I reviewed the patient's lab results. Result diagrams: 09/01/19 19:52 09/01/19 19:52 Lab Results 09/01/19 09/01/19 09/01/19 Range/Units 19:50 19:52 19:52 WBC 20.99 H (4.8-10.8) K/uL RBC 4.18 L (4.2-5.4) M/uL Hgb 12.1 (12.0-16.0) g/dL Hct 34.5 L (37-47) % MCV 82.5 (80-100) fL MCH 28.9 (25-34) pg MCHC 35.1 (32-36) g/dL RDW Std Deviation 44.7 (36.4-46.3) fL RDW Coeff of Jaun 14.8 H (11.5-14.5) % Plt Count 232 (130-400) K/uL MPV 9.6 (7.4-10.4) fL Immature Gran % (Auto) 0.4 % Neut % (Auto) 84.7 % Lymph % (Auto) 8.4 % [place] % (Auto) 6.3 % Eos % (Auto) 0.0 % Baso % (Auto) 0.2 % Immature Gran # (Auto) 0.09 H (0.00-0.02) K/uL Neut # (Auto) 17.77 H (1.4-6.5) K/uL Lymph # (Auto) 1.76 (1.2-3.4) K/uL [place] # (Auto) 1.33 H (0.11-0.59) K/uL Eos # (Auto) 0.00 (0-0.5) K/uL Baso # (Auto) 0.04 (0-0.2) K/uL Sodium (136-145) mmol/L Potassium (3.5-5.1) mmol/L Chloride (98-107) mmol/L Carbon Dioxide (21-32) mmol/L Anion Gap (3-11) BUN (7-18) mg/dl Creatinine (0.6-1.2) mg/dl Est Cr Clr Drug Dosing ml/min Est GFR ( Amer) Est GFR (Non-Af Amer) BUN/Creatinine Ratio (10-20) Glucose (70-99) mg/dl Lactate 2.3 H* (0.4-2.0) mmol/L Calcium (8.5-10.1) mg/dl Total Bilirubin (0.2-1) mg/dl AST (15-37) U/L ALT (12-78) U/L Alkaline Phosphatase (45-117) U/L Total Protein (6.4-8.2) gm/dl Albumin (3.4-5.0) gm/dl Globulin (2.5-4.0) gm/dl Albumin/Globulin Ratio (0.9-2) Urine Color Urine Appearance (Clear) Urine pH (4.5-7.5) Ur Specific Gonzales (1.000-1.030) Urine Protein (Negative) Urine Glucose (UA) (Negative) Urine Ketones (Negative) Urine Blood (Negative) Urine Nitrite (Negative) Urine Bilirubin (Negative) Urine Urobilinogen (Negative) Ur Leukocyte Esterase (Negative) Urine WBC (Auto) (0-5) /hpf Urine RBC (Auto) (0-4) /hpf U Hyaline Cast (Auto) (0-5) /lpf U Epithel Cells (Auto) (0-5) /lpf Urine Bacteria (Auto) (Negative) Influenza Type A Ag Neg for Influ A (Neg) Influenza Type B Ag Neg for Influ B (Neg) 09/01/19 09/01/19 Range/Units 19:52 20:51 WBC (4.8-10.8) K/uL RBC (4.2-5.4) M/uL Hgb (12.0-16.0) g/dL Hct (37-47) % MCV (80-100) fL MCH (25-34) pg MCHC (32-36) g/dL RDW Std Deviation (36.4-46.3) fL RDW Coeff of Jaun (11.5-14.5) % Plt Count (130-400) K/uL MPV (7.4-10.4) fL Immature Gran % (Auto) % Neut % (Auto) % Lymph % (Auto) % [place] % (Auto) % Eos % (Auto) % Baso % (Auto) % Immature Gran # (Auto) (0.00-0.02) K/uL Neut # (Auto) (1.4-6.5) K/uL Lymph # (Auto) (1.2-3.4) K/uL [place] # (Auto) (0.11-0.59) K/uL Eos # (Auto) (0-0.5) K/uL Baso # (Auto) (0-0.2) K/uL Sodium 131 L (136-145) mmol/L Potassium (3.5-5.1) mmol/L Chloride 101 (98-107) mmol/L Carbon Dioxide 21 (21-32) mmol/L Anion Gap 10.0 (3-11) BUN 14 (7-18) mg/dl Creatinine 0.91 (0.6-1.2) mg/dl Est Cr Clr Drug Dosing 80.1 ml/min Est GFR ( Amer) 77.8 Est GFR (Non-Af Amer) 67.1 BUN/Creatinine Ratio 15.5 (10-20) Glucose 204 H (70-99) mg/dl Lactate (0.4-2.0) mmol/L Calcium 9.0 (8.5-10.1) mg/dl Total Bilirubin 0.4 (0.2-1) mg/dl AST (15-37) U/L ALT 25 (12-78) U/L Alkaline Phosphatase 91 (45-117) U/L Total Protein 7.7 (6.4-8.2) gm/dl Albumin 3.1 L (3.4-5.0) gm/dl Globulin 4.6 H (2.5-4.0) gm/dl Albumin/Globulin Ratio 0.7 L (0.9-2) Urine Color Yellow Urine Appearance Clear (Clear) Urine pH 7.0 (4.5-7.5) Ur Specific Gonzales 1.022 (1.000-1.030) Urine Protein Negative (Negative) Urine Glucose (UA) Negative (Negative) Urine Ketones Negative (Negative) Urine Blood Trace H (Negative) Urine Nitrite Negative (Negative) Urine Bilirubin Negative (Negative) Urine Urobilinogen Negative (Negative) Ur Leukocyte Esterase Negative (Negative) Urine WBC (Auto) 1-5 (0-5) /hpf Urine RBC (Auto) 5-10 H (0-4) /hpf U Hyaline Cast (Auto) 0 (0-5) /lpf U Epithel Cells (Auto) 20-30 H (0-5) /lpf Urine Bacteria (Auto) Negative (Negative) Influenza Type A Ag (Neg) Influenza Type B Ag (Neg) Imaging Data Attestation: I personally reviewed and interpreted this imaging study as follows: My Impression: Chest x-ray revealed no acute infiltrate Radiologist's Impression: XR chest 1V portable CLINICAL HISTORY: fever, cough COMPARISON STUDY: 07/24/2019 FINDINGS: The cardiac and mediastinal contours are normal. There is no focal pulmonary consolidation. There is mild interstitial thickening similar to prior studies. There are no pleural effusions. There is no failure.[ IMPRESSION: No active disease in the chest. ACT 112: Negative or not required by law. Electronically signed by: Jah Palomino M.D. 09/01/2019 7:41 PM Dictated: [id number]/01/[id number] Transcribed: 09/01/191939 Blood Pressure Blood Pressure Findings: Elevated blood pressure Blood Pressure Disposition: elevated BP felt to be situational MDM Narrative The patient was evaluated. IV access was obtained. The patient was given Tylenol 1 g IV. She was given 1 L of normal saline wide open. CBC and di fferential, renal profile, LFTs were ordered. Rapid strep was negative. Culture is pending. Rapid influenza was negative for influenza A and influenza B. Chest x-ray was ordered interpreted by the radiologist and myself as above without any acute findings. Abs were reviewed. The patient's white count was elevated at almost 21,000, hemoglobin 12.1 hematocrit 34.5, sodium was slightly low at 131 glucose at 204. The patient's lactate was 2.3. The patient's case was discussed with Dr. Sutton who agreed with treatment plan. The patient was given additional liter of saline wide open. Urinalysis was ordered and revealed a trace of blood otherwise negative. She was given Zosyn 4.5 g IV. The hospitalist was consulted for admission. Impression & Plan Fever, Elevated white blood cell count Discharge Plan Visit Data Chief Complaint: Illness Stated Complaint: SINUS INFECTION, MEDS NOT HELPING, FEVER ED Provider: Muriel Sutton ED Midlevel Provider: Yelena Carbajal Discharge Problem: Fever, Elevated white blood cell count Patient Disposition: Being Evaluated by Hospitalist Condition: Good Forms Stand Alone Forms: My [facility] Prescriptions Prescriptions: No Action montelukast [Singulair] 10 mg tablet 10 mg PO HS Qty: 90 RF: 3 levothyroxine [Synthroid] 25 mcg tablet 25 mcg PO DAILY Qty: 30 RF: 5 diltiazem HCl 300 mg capsule,extended release 24 hr 300 mg PO DAILY Qty: 90 RF: 3 flecainide 50 mg tablet 50 mg PO Q12H Qty: 180 RF: 3 fluticasone propion-salmeterol [Advair Diskus] 500-50 mcg/dose blister with device 1 puffs INH BID Qty: 60 RF: 3 ipratropium-albuterol 0.5 mg-3 mg(2.5 mg base)/3 mL solution for nebulization 3 ml INHALATION DIRECTED PRN (Reason: Shortness Of Breath Or Wheezing) Qty: 90 RF: 3 doxycycline hyclate 100 mg tablet 100 mg PO BID Qty: 10 RF: 1 budesonide 0.5 mg/2 mL suspension for nebulization 0.5 mg INH BID Qty: 60 RF: 2 Eliquis 2.5 mg Tablet 0 mg PO BID RF: 0 aspirin [Aspir-81] 81 mg Tablet,Delayed Release (Dr/Ec) 81 mg PO HS RF: 0 albuterol sulfate [ProAir HFA] 90 mcg/actuation Hfa Aerosol Inhaler 1 - 2 puff INHALATION DIRECTED PRN (Reason: Shortness Of Breath Or Wheezing) RF: 0 loratadine [Claritin] 10 mg Tablet 10 mg PO HS RF: 0 Referrals Referrals: Osbaldo Santoyo MD [Primary Care Provider] -
[2019-09-01 20:08] LABS: Basophils # (auto) 0.04 K/uL (0-0.2); Basophils % (auto) 0.2 %; Hematocrit (blood only) 34.5 % (37-47); Hemoglobin 12.1 g/dL (12.0-16.0); Immature Granulocytes # (auto) 0.09 K/uL (0.00-0.02); Immature Granulocytes % (auto) 0.4 %; Lymphocytes # (auto) 1.76 K/uL (1.2-3.4); Lymphocytes % (auto) 8.4 %; Mean Corpuscular Hemoglobin 28.9 pg (25-34); Mean Corpuscular Hgb Conc 35.1 g/dL (32-36); Mean Corpuscular Volume 82.5 fL (80-100); Mean Platelet Volume 9.6 fL (7.4-10.4); Monocytes # (auto) 1.33 K/uL (0.11-0.59); Monocytes % (auto) 6.3 %; Neutrophils # (auto) 17.77 K/uL (1.4-6.5); Neutrophils % (auto) 84.7 %; Platelet Count 232 K/uL (130-400); RDW Coefficient of Variation 14.8 % (11.5-14.5); RDW Standard Deviation 44.7 fL (36.4-46.3); Red Blood Count 4.18 M/uL (4.2-5.4); White Blood Count 20.99 K/uL (4.8-10.8)
[2019-09-01] MEDS ORDERED: cefTRIAXone SODIUM 1,000 MG/50 ML BAG IV STA (20:42)
[2019-09-01 20:46] LABS: Albumin Globulin Ratio 0.7 (0.9-2); Albumin Level 3.1 gm/dl (3.4-5.0); BUN Creatinine Ratio 15.5 (10-20); Bilirubin,Total 0.4 mg/dl (0.2-1); Creatinine Clr Calc Pharmacy 80.1 ml/min; Est GFR (African American) 77.8; Est GFR (Non-African American) 67.1; Globulin 4.6 gm/dl (2.5-4.0); Total Protein 7.7 gm/dl (6.4-8.2)
[2019-09-01] MEDS ORDERED: PIPERACILL/TAZOBAC CONSULT ACTIVE PRN ×2 (20:52→21:59)
[2019-09-01] MEDS ORDERED: SODIUM CHLORIDE 0.9% 1000ML 1,000 ML IV ONE (20:52)
[2019-09-01] MEDS ORDERED: PIPERACILLIN/TAZOBACTAM 4.5 GM/120 ML BAG IV ONE (20:52)
[2019-09-01 21:22] LABS: Appearance Urine Clear (Clear); Bacteria Urine Automated Negative (Negative); Bilirubin Urine Negative (Negative); Blood Urine Trace (Negative); Cast Urine Automated 0 /lpf (0-5); Color Urine Yellow; Epithelial Cell Urine Auto 20-30 /lpf (0-5); Glucose Urine UA Negative (Negative); Ketones Urine Negative (Negative); Leukocyte Esterase Urine Negative (Negative); Nitrite Urine Negative (Negative); Protein Urine Negative (Negative); Specific Gravity Urine 1.022 (1.000-1.030); Urobilinogen Urine Negative (Negative)
[2019-09-01] MEDS ORDERED: ALBUT/IPRATROP 3MG/0.5MG NEB 3 ML VIAL INH PRN (21:48)
--- NOTE | 2019-09-01 22:56 | History & Physical Report ---
Date of Service September 01, 2019 Assessment & Plan (1) Sepsis: Patient has SIRS with likely source of lung. She is intermittently wheezing without stethoscope during interrogation. However, her lungs are clear on exam. Her x-ray does appear to show some changes on bases bilaterally. However, radiology read it as normal. Will treat for likely sepsis with pulmonary origen. Will obtain procal in AM. Ordered cultures as well. Ordered nebs overnight and CPAP as she has DEEPAK. Patient will bring in her device from home. (2) Fever: Acute fever, if no improvement in AM. May consider obtaining a flu blood test. Her flu swab was negative She was recently positive for FLU A. Doubt Lyme or tick borne illness for her fever as she has been on doxycycline which would treat this. (3) Elevated white blood cell count: as stated above (4) Asthma: will resume home meds (5) Afib: resume flecaininde and continue on levothyroxine. (6) Nocturnal hypoxemia: resume cpap. (7) Hypertension: (8) GERD (gastroesophageal reflux disease): placed on pantoptrazole during hospital stay. (9) Hypothyroidism: resume levothyroxine. History of Present Illness Chief Complaint: Fever Primary Care Provider: Osbaldo Santoyo MD 64-year-old female who presents to the hospital with fever chills which has been ongoing for the past week. Patient was initially seen by her PCP as her main complaints at the time of presentation were sinus pressure, sore throat and a nasal greenish drainage with some blood. She was prescribed doxycycline which she took. She states she felt intermittently better on Tuesday but shortly after the following day she felt worse and gradually her fever became higher and higher until she decided to come to the hospital. Her temperature today reached a level of 104 F. She states that she has asthma she has been taking her nebulizers prophylactically. Patient reports she does not hike, nor does she recall any tick bites. Allergies Allergy/AdvReac Type Severity Reaction Status Date / Time nickel Allergy Mild ITCHING Verified 09/01/19 21:39 AND SKIN IRRITATION thimerosal Allergy Mild EYE REDNESS Verified 09/01/19 21:39 cat dander Allergy Unknown Verified 09/01/19 21:39 house dust mite Allergy Unknown Verified 09/01/19 21:39 mold Allergy Unknown Verified 09/01/19 21:39 pollen extracts Allergy Unknown Verified 09/01/19 21:39 Home Medications Home Medications Medication Instructions Recorded Confirmed Type albuterol sulfate [ProAir HFA] 1 - 2 puff INHALATION DIRECTED 12/17/18 09/01/19 History PRN aspirin [Aspir-81] 81 mg PO HS 12/17/18 09/01/19 History loratadine [Claritin] 10 mg PO HS 12/17/18 09/01/19 History montelukast 10 mg tablet 10 mg PO HS #90 tab 05/25/19 09/01/19 Rx levothyroxine 25 mcg tablet 25 mcg PO DAILY #30 tab 06/08/19 09/01/19 Rx diltiazem HCl 300 mg capsule,24 300 mg PO DAILY #90 cap 07/08/19 09/01/19 Rx hr,extended release flecainide 50 mg tablet 50 mg PO Q12H #180 tab 07/27/19 09/01/19 Rx fluticasone 500 mcg-salmeterol 50 1 puffs INH BID #60 ea 08/02/19 09/01/19 Rx mcg/dose blistr powdr for inhalation ipratropium 0.5 mg-albuterol 3 mg 3 ml INHALATION DIRECTED PRN 08/02/19 09/01/19 Rx (2.5 mg base)/3 mL nebulization #90 ml soln budesonide 0.5 mg/2 mL suspension 0.5 mg INH BID #60 ml 08/03/19 09/01/19 Rx for nebulization doxycycline hyclate 100 mg tablet 100 mg PO BID #10 tab 08/31/19 09/01/19 Rx apixaban [Eliquis] 0 mg PO BID 09/01/19 09/01/19 History Past Med/Surg History Medical History History of cellulitis right arm History of extrinsic asthma with acute exacerbation Internal hemorrhoids (Acute) Trochanteric bursitis Tubular adenoma of colon (Acute) Surgical History Hx of colonoscopy S/P dilation and curettage S/P laparoscopy with excision of gynecologic lesions Family History Sister Asthma Allergic rhinitis Father Diabetes Mother Non-Hodgkin lymphoma Denies family history of Ovarian cancer Breast cancer Colorectal cancer Social History Preferred Language: Arabic Communication Ability: Effective Computer Laboratory Technician Required: No Beliefs That Will Affect Care: None Current Living Situation: Spouse current occupational status: employed 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 [employer] Other Information That Helps Us Care for You: No Feels Safe at Home: Yes Safety Concerns: Feels Safe At This Time Smoking Status: Former smoker Hx Alcohol Use: No Hx Substance Use: No Review of Systems Constitutional: + fever and + malaise; no sweats Eyes: no diplopia and no decreased night vision Ear, Nose, Mouth, Throat: no ear trauma Respiratory: no change in sputum Cardiovascular: no chest pain with activity Gastrointestinal: no bloating Musculoskeletal: + neck pain; no radicular pain Integumentary: no rash and no lesions Neurologic: no gait abnormality and no falls Psychiatric: no behavioral changes Endocrine: + fatigue; no polydipsia Hematologic / Lymphatic: no easy bleeding Allergy / Immunological: no itchy eyes Physical Exam Constitutional: WD/WN, vitals as above + acute distress (in mild distress); no altered mental status Eyes: PERRL, conjunctivae normal, anicteric sclerae Neck: trachea midline, no thyromegaly Respiratory: normal respiratory effort, lungs clear to auscultation Cardiovascular: Rate/Rhythm: regular rhythm and + tachycardic Heart Sounds: normal S1 and normal S2 Gastrointestinal (Abdomen): normal bowel sounds, soft, nontender, no hepatosplenomegaly Musculoskeletal: no cyanosis or clubbing, extremities motor strength 5/5 Skin: no rashes, warm and dry Neurologic: PERRL, EOMI, accommodation nl, no face palsy, no dysarthria Psychiatric: A+Ox3, euthymic affect Results & Data Vital Signs (Past 12 Hours) Vital Signs Temp Pulse Pulse Resp BP BP Pulse Ox 09/01/19 20:50 91 H 18 169/93 H 93 09/01/19 19:11 39.4 C H 103 H 18 155/96 H 97 PG Care Time/CCT Total # of Minutes Spent Total Time Spent with Patient: Total time spent is greater than 50% in coordination of care (as documented) at patient's floor/unit and/or counseling patient: Coding Level of Care Code 53489 Initial Inpt Care Lvl 3 Diagnoses Sepsis A41.9 Fever R50.9 Fever type: unspecified Elevated white blood cell count D72.829 Leukocytosis type: unspecified Asthma J45.909 Afib I48.91 Nocturnal hypoxemia G47.34 Hypertension I10 GERD (gastroesophageal reflux disease) K21.9 Hypothyroidism E03.9 Time Spent (min) 50 (1) Fever Fever type: unspecified Qualified Code(s): R50.9 - Fever, unspecified (2) Elevated white blood cell count Leukocytosis type: unspecified Qualified Code(s): D72.829 - Elevated white blood cell count, unspecified
[2019-09-01] MEDS ORDERED: SODIUM CHLORIDE 0.65% NA SOLN 45 ML (OCEAN) PRN (23:58)
[2019-09-02] MEDS: LORATADINE 10 MG TAB PO SCH ×2 (00:26→20:21)
[2019-09-02] MEDS: FLECAINIDE ACETATE 100 MG TABLET PO SCH ×3 (00:26→20:22)
[2019-09-02] MEDS: ASPIRIN 81 MG ECTAB PO SCH ×2 (00:27→20:23)
[2019-09-02] MEDS: APIXABAN 2.5 MG TAB PO SCH ×3 (00:28→20:22)
[2019-09-02] MEDS: MONTELUKAST SODIUM 10 MG TABLET PO SCH ×2 (00:28→20:23)
[2019-09-02] MEDS: LEVALBUTEROL HCL 1.25 MG/3 ML NEB NEB SCH ×4 (01:24→19:24)
[2019-09-02] MEDS ORDERED: ACETAMINOPHEN 325 MG TAB PO PRN (02:00)
[2019-09-02] MEDS: PIPERACILLIN/TAZOBACTAM 4.5 GM in DEXTROSE 5% 100 ML IV SCH ×2 (02:18→10:01)
[2019-09-02] MEDS: LEVOTHYROXINE SODIUM 25 MCG TABLET PO SCH (06:18)
[2019-09-02] MEDS: BUDESONIDE 0.5 MG/2 ML VIAL (PULMICORT) INH SCH ×2 (06:50→19:24)
[2019-09-02] MEDS: PANTOprazole 40 MG TAB PO SCH (08:21)
[2019-09-02] MEDS: dilTIAZem HCL 300 MG CAPCR PO SCH (08:21)
[2019-09-02] MEDS: FLUTICASONE/VILANTEROL 200/25MCG 14 PUFFS/INHALER INH SCH (08:22)
[2019-09-02 09:53] LABS: Influenza A virus by PCR Neg for Influ A (Neg); Influenza B virus by PCR Neg for Influ B (Neg)
--- NOTE | 2019-09-02 11:52 | Hospitalist Progress Note ---
Date of Service September 02, 2019 Assessment & Plan (1) Sinusitis, acute: frontal sinus pain/tenderness, purulent nasal d/c x 1 week, fever - c/w clinical acute sinusitis. stop IV zosyn. change to IV rocephin. if blood cx's remain negative then can de-escalate to augmentin, omnicef, etc. (2) Strep pharyngitis: started with severe sore throat about 1 week ago. pharyngitis symptoms improved after 3 days of doxycycline. throat cx + for group A strep. I believe the current fever, etc is not from the strep but likely the sinusitis. doxy was likely treating the strep present (although there is some doxy resistance from strep pyogenes). rocephin will be adequate. symptomatic care. (3) Lymphadenopathy of head and neck: left neck. likely due to strep pharyngitis, sinusitis, etc. if lymph nodes persist, worsen, etc consider imaging of neck - r/o abscess, lymphadenitis, etc. 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 (4) Sepsis: 2nd to strep pharyngitis + frontal sinusitis. thus far no evidence of bacteremia. WBC count is improved today, and she feels better. de-escalate abx from zosyn to rocephin. follow cultures. (5) Asthma: cont home meds no exacerbation at this time (6) Afib: cont flecaininde and eliquis tele thus far stable (7) Nocturnal hypoxemia: cont cpap for DEEPAK (8) Hypertension: cont home meds controlled (9) GERD (gastroesophageal reflux disease): cont PPI (10) Hypothyroidism: TSH 06/2019 was wnl. cont levothyroxine. (11) Hyperglycemia: glucose was 204 on presenting BMP in light of obesity check HbA1c, r/o early T2DM (12) Morbid obesity: BMI nearly 40 (13) DVT prophylaxis: eliquis BID updated at bedside would like to see 24 hours of no fever off of antipyretics as well as 48 hours of neg blood cx's prior to d/c home Admission and Anticipated Discharge Date Admission Date: September 01, 2019 Anticipated date of discharge: 09/04/19 Subjective patient states she and were in [facility] x 1 week last week for a family wedding got sick last Tuesday (1 week ago) with sore throat - "the worst I've ever had in my life" sister is physician in [place]- she prescribed doxycycline for her flew back to [facility] - direct flight to [facility] from [place] early this week by Tuesday throat was feeling better however, all week, she has had frontal headaches, purulent nasal discharge and poor appetite she is coughing but it is very mild she states "my asthma is fine" c/o left anterior neck swelling/pain Review of Systems Constitutional: + fever, + fatigue and + anorexia Ear, Nose, Mouth, Throat: + nasal congestion, + nasal discharge, + sinus pain/pressure (frontal; no maxillary pain; no tooth pain) and + sore throat; no dysphagia Respiratory: + cough; no dyspnea Cardiovascular: no chest pain Gastrointestinal: no abdominal pain Physical Exam Constitutional: + morbidly obese; no acute distress and no altered mental status nontoxic ENMT: Mouth: + oropharynx abnormality (tonsils 1+; mild erythema; no exudate; symmetric tonsils); no muffled voice and no drooling Throat: no uvular edema mild frontal sinus tenderness to palpation; no pain over maxillary sinuses Neck: tender lymphadenopathy, left; at least 2 cervical nodes, each 1-2cm in size Respiratory: normal respiratory effort, lungs clear to auscultation Cardiovascular: Rate/Rhythm: regular rate and regular rhythm Heart Sounds: normal S1 and normal S2; no murmur Vessels: posterior tibial pulses present and dorsalis pedis pulses present; no JVD Extremities: no edema Gastrointestinal (Abdomen): normal bowel sounds, soft, nontender, no hepatosplenomegaly Psychiatric: A+Ox3, euthymic affect Lymphatic: + cervical lymphadenopathy (left - see above) Results & Data ([facility]) Vital Signs (Past 12 Hours) Vital Signs Temp Pulse Pulse Pulse Resp BP BP 09/02/19 11:30 37.6 C H 79 20 132/76 09/02/19 08:41 87 09/02/19 08:00 96 H 168/51 H 09/02/19 07:56 37.4 C 74 20 96/59 L 09/02/19 06:51 75 16 09/02/19 03:54 38.9 C H 95 H 20 127/82 09/02/19 01:24 101 H 16 09/02/19 00:29 39.3 C H 99 H 20 162/96 H Pulse Ox 09/02/19 11:30 98 09/02/19 08:41 09/02/19 08:00 09/02/19 07:56 95 09/02/19 06:51 95 09/02/19 03:54 96 09/02/19 01:24 97 09/02/19 00:29 96 Laboratory Results Laboratory Results - last 24 hr 09/02/19 09/02/19 09/02/19 04:52 09:15 11:54 WBC 15.73 H RBC 4.13 L Hgb 12.0 Hct 34.6 L MCV 83.8 MCH 29.1 MCHC 34.7 RDW Std Deviation 46.5 H RDW Coeff of Jaun 15.1 H Plt Count 220 MPV 9.1 Immature Gran % (Auto) 0.3 Neut % (Auto) 80.3 Lymph % (Auto) 14.4 [place] % (Auto) 4.8 Eos % (Auto) 0.0 Baso % (Auto) 0.2 Immature Gran # (Auto) 0.05 H Neut # (Auto) 12.62 H Lymph # (Auto) 2.27 [place] # (Auto) 0.76 H Eos # (Auto) 0.00 Baso # (Auto) 0.03 Sodium Potassium Chloride Carbon Dioxide Anion Gap BUN Creatinine Est Cr Clr Drug Dosing Est GFR ( Amer) Est GFR (Non-Af Amer) BUN/Creatinine Ratio Glucose Estimat Average Glucose Hemoglobin A1c Calcium Hepatitis C Ab Screen Neg Influenza Type A (PCR) Neg for Influ A Influenza Type B (PCR) Neg for Influ B 09/02/19 09/02/19 11:54 11:54 WBC RBC Hgb Hct MCV MCH MCHC RDW Std Deviation RDW Coeff of Jaun Plt Count MPV Immature Gran % (Auto) Neut % (Auto) Lymph % (Auto) [place] % (Auto) Eos % (Auto) Baso % (Auto) Immature Gran # (Auto) Neut # (Auto) Lymph # (Auto) [place] # (Auto) Eos # (Auto) Baso # (Auto) Sodium 136 Potassium 3.3 L Chloride 105 Carbon Dioxide 26 Anion Gap 5.0 BUN 8 D Creatinine 0.92 Est Cr Clr Drug Dosing 80.0 Est GFR ( Amer) 76.8 Est GFR (Non-Af Amer) 66.3 BUN/Creatinine Ratio 8.9 L Glucose 113 H Estimat Average Glucose Pending Hemoglobin A1c Pending Calcium 8.9 Hepatitis C Ab Screen Influenza Type A (PCR) Influenza Type B (PCR) Diagnostic Findings blood cx's neg throat cx + for group A strep PG Care Time/CCT Total # of Minutes Spent Total Time Spent with Patient: Total time spent is greater than 50% in coordination of care (as documented) at patient's floor/unit and/or counseling patient: Coding Level of Care Code 83555 Subseq Hosp Care Lvl 3 Diagnoses Sinusitis, acute J01.10 Sinusitis location: frontal Recurrence: not specified as recurrent Strep pharyngitis J02.0 Lymphadenopathy of head and neck R59.1 Sepsis A41.9 Sepsis type: sepsis due to unspecified organism Sepsis acute organ dysfunction status: without acute organ dysfunction Asthma J45.909 Asthma severity: unspecified severity Asthma persistence: unspecified Asthma complication type: unspecified Afib I48.0 Atrial fibrillation type: paroxysmal Nocturnal hypoxemia G47.34 Hypertension I10 Hypertension type: essential hypertension GERD (gastroesophageal reflux disease) K21.9 Esophagitis presence: esophagitis presence not specified Hypothyroidism E03.9 Hypothyroidism type: acquired Hyperglycemia R73.9 Morbid obesity E66.01 DVT prophylaxis Z29.9 (1) Sepsis Sepsis type: sepsis due to unspecified organism Sepsis acute organ dysfunction status: without acute organ dysfunction Qualified Code(s): A41.9 - Sepsis, unspecified organism (2) Asthma Asthma severity: unspecified severity Asthma persistence: unspecified Asthma complication type: unspecified Qualified Code(s): J45.909 - Unspecified asthma, uncomplicated (3) Afib Atrial fibrillation type: paroxysmal Qualified Code(s): I48.0 - Paroxysmal atrial fibrillation (4) Hypertension Hypertension type: essential hypertension Qualified Code(s): I10 - Essential (primary) hypertension (5) GERD (gastroesophageal reflux disease) Esophagitis presence: esophagitis presence not specified Qualified Code(s): K21.9 - Gastro-esophageal reflux disease without esophagitis (6) Hypothyroidism Hypothyroidism type: acquired Qualified Code(s): E03.9 - Hypothyroidism, unspecified (7) Sinusitis, acute Sinusitis location: frontal Recurrence: not specified as recurrent Qualified Code(s): J01.10 - Acute frontal sinusitis, unspecified
[2019-09-02 12:09] LABS: Basophils # (auto) 0.03 K/uL (0-0.2); Basophils % (auto) 0.2 %; Hematocrit (blood only) 34.6 % (37-47); Immature Granulocytes # (auto) 0.05 K/uL (0.00-0.02); Immature Granulocytes % (auto) 0.3 %; Lymphocytes # (auto) 2.27 K/uL (1.2-3.4); Lymphocytes % (auto) 14.4 %; Mean Corpuscular Hemoglobin 29.1 pg (25-34); Mean Corpuscular Hgb Conc 34.7 g/dL (32-36); Mean Corpuscular Volume 83.8 fL (80-100); Mean Platelet Volume 9.1 fL (7.4-10.4); Monocytes # (auto) 0.76 K/uL (0.11-0.59); Monocytes % (auto) 4.8 %; Neutrophils # (auto) 12.62 K/uL (1.4-6.5); Neutrophils % (auto) 80.3 %; Platelet Count 220 K/uL (130-400); RDW Coefficient of Variation 15.1 % (11.5-14.5); RDW Standard Deviation 46.5 fL (36.4-46.3); Red Blood Count 4.13 M/uL (4.2-5.4); White Blood Count 15.73 K/uL (4.8-10.8)
[2019-09-02] MEDS: LACTOBACILLUS ACIDOPHILUS (FLORANEX) TAB PO SCH ×2 (12:29→17:07)
[2019-09-02 12:50] LABS: BUN Creatinine Ratio 8.9 (10-20); Calcium 8.9 mg/dl (8.5-10.1); Est GFR (African American) 76.8; Est GFR (Non-African American) 66.3; Potassium 3.3 mmol/L (3.5-5.1)
[2019-09-02] MEDS ORDERED: cefTRIAXone SODIUM 2,000 MG in DEXTROSE 5% 50 ML IV SCH (18:00)
[2019-09-02] MEDS ORDERED: POTASSIUM CHLORIDE 20 MEQ TABCR PO STA (20:29)
[2019-09-03] MEDS: LEVALBUTEROL HCL 1.25 MG/3 ML NEB NEB SCH ×2 (01:15→07:02)
[2019-09-03 06:08] LABS: Estimated Average Glucose 160 mg/dl; Hemoglobin A1C 7.2 % (4.5-5.6)
[2019-09-03] MEDS: LEVOTHYROXINE SODIUM 25 MCG TABLET PO SCH (06:23)
[2019-09-03] MEDS: BUDESONIDE 0.5 MG/2 ML VIAL (PULMICORT) INH SCH (07:02)
[2019-09-03 07:22] LABS: Hematocrit (blood only) 33.3 % (37-47); Hemoglobin 11.4 g/dL (12.0-16.0); Mean Corpuscular Hemoglobin 28.9 pg (25-34); Mean Corpuscular Hgb Conc 34.2 g/dL (32-36); Mean Corpuscular Volume 84.3 fL (80-100); Mean Platelet Volume 9.5 fL (7.4-10.4); Platelet Count 200 K/uL (130-400); RDW Coefficient of Variation 15.1 % (11.5-14.5); RDW Standard Deviation 46.9 fL (36.4-46.3); Red Blood Count 3.95 M/uL (4.2-5.4); White Blood Count 9.69 K/uL (4.8-10.8)
[2019-09-03 07:58] LABS: BUN Creatinine Ratio 12.4 (10-20); Calcium 9.1 mg/dl (8.5-10.1); Creatinine Clr Calc Pharmacy 98.4 ml/min; Est GFR (African American) 101.6; Est GFR (Non-African American) 87.7; Potassium 4.1 mmol/L (3.5-5.1)
[2019-09-03] MEDS: LACTOBACILLUS ACIDOPHILUS (FLORANEX) TAB PO SCH ×2 (08:22→11:37)
[2019-09-03] MEDS: FLUTICASONE/VILANTEROL 200/25MCG 14 PUFFS/INHALER INH SCH (08:22)
[2019-09-03] MEDS: PANTOprazole 40 MG TAB PO SCH (08:22)
[2019-09-03] MEDS: APIXABAN 2.5 MG TAB PO SCH (08:22)
[2019-09-03] MEDS: FLECAINIDE ACETATE 100 MG TABLET PO SCH (08:23)
[2019-09-03] MEDS: dilTIAZem HCL 300 MG CAPCR PO SCH (08:23)
[2019-09-03] MEDS ORDERED: AMOXICILLIN SUSP 250 MG/5 ML 100 ML BTL PO STA (11:01)
--- NOTE | 2019-09-03 17:22 | Discharge Summary ---
Date of Service September 03, 2019 Admission HPI Per Admitting Provider 64-year-old female who presents to the hospital with fever chills which has been ongoing for the past week. Patient was initially seen by her PCP as her main complaints at the time of presentation were sinus pressure, sore throat and a nasal greenish drainage with some blood. She was prescribed doxycycline which she took. She states she felt intermittently better on Tuesday but shortly after the following day she felt worse and gradually her fever became higher and higher until she decided to come to the hospital. Her temperature today reached a level of 104 F. She states that she has asthma she has been taking her nebulizers prophylactically. Patient reports she does not hike, nor does she recall any tick bites. Principal Diagnosis Group A Strep and acute bacterial sinusitis Discharge Exam Constitutional WD/WN, vitals as above Eyes EOM intact bilaterally; no conjunctival abnormality ENMT external ear and nose normal, oropharynx normal (No tonsilar exudate seen; no uvular asymmetry) Neck trachea midline, no thyromegaly normal visual inspection Posterior lymph node on the left side palpable Respiratory normal respiratory effort, lungs clear to auscultation no respiratory distress Cardiovascular RRR, no murmur, no edema Gastrointestinal (Abdomen) Inspection/Auscultation: abdomen normal to inspection; abdomen not distended Musculoskeletal no cyanosis or clubbing, extremities motor strength 5/5 Skin no rashes, warm and dry Neurologic moves all extremities and awake Psychiatric Orientation: alert, oriented to person and cooperative Discharge Data Allergies Allergy/AdvReac Type Severity Reaction Status Date / Time nickel Allergy Mild ITCHING Verified 09/01/19 21:39 AND SKIN IRRITATION thimerosal Allergy Mild EYE REDNESS Verified 09/01/19 21:39 cat dander Allergy Unknown Verified 09/01/19 21:39 house dust mite Allergy Unknown Verified 09/01/19 21:39 mold Allergy Unknown Verified 09/01/19 21:39 pollen extracts Allergy Unknown Verified 09/01/19 21:39 Consultations 09/01/19 21:01 ED Decision to Admit Stat Hospital Course (1) Sinusitis, acute: Frontal sinus pain/tenderness, purulent nasal d/c x 1 week, fever - c/w clinical acute sinusitis. - Discharged on amoxicillin 875 mg PO BID x 10 days total course. - While Augmentin is also a decent choice, our coverage for Strep pneumo is very good with amoxicillin, and she also had the positive Group A Strep, so I felt just amoxicillin was a good option for her. (2) Strep pharyngitis: Started with severe sore throat about 1 week ago. Pharyngitis symptoms improved after 3 days of doxycycline. - Throat cx + for group A strep. - Ten days of amoxicillin as above (3) Hyperglycemia: Glucose was 204 on presenting BMP. - A1c was 7.2%. However, I did not notice this result until after patient had been discharged. - Will need PCP follow up for DM discussion and considering starting metformin or other DM med. (4) Lymphadenopathy of head and neck: Left neck. Likely due to strep pharyngitis, sinusitis, etc. - Improved rapidly. By discharge, only 1 remaining lymph node. Discussed the warning signs with the patient for peritonsillar abscess. Not contagious by discharge. (5) Sepsis: 2nd to strep pharyngitis + frontal sinusitis. - Resolved (6) Asthma: Was having a very mild exacerbation on discharge with more coughing. The patient did NOT want steroids as she felt she was doing well overall and does not want the side effects. - Cont home meds - Will contact Dr. Hinds if the symptoms get worse. (7) Afib: Stable HR. - Cont flecaininde and eliquis (8) Nocturnal hypoxemia: - Cont cpap for DEEPAK (9) Hypertension: Well-controlled inpatient. - Cont home meds (10) GERD (gastroesophageal reflux disease): - Cont PPI (11) Hypothyroidism: TSH 06/2019 was wnl. - Cont levothyroxine. (12) Morbid obesity: BMI nearly 40. - Healthy diet and exercise encouraged. (13) DVT prophylaxis: Eliquis BID Total Time Total Time Spent Total Time Spent (In Minutes): 35 Discharge Plan Discharge Items Patient Disposition: Home - Self-Care Reason For Visit: SEPSIS (SEVERE) Discharge Diagnosis: Group A strep infection (Strep throat) & sinusitis Condition on Discharge: Good Activity: Resume your previous activity Non-emergency contact: Primary Care Provider Call non-emergency contact if: your symptoms worsen, your pain is worsening and your temperature is above 101 Follow-up/Referrals: Pro,Osbaldo Garg MD [Primary Care Provider] - 09/05/19 9:45 am (Your appointment is with Tia Dudukovich, PAC. If you need to change this appointment, please call [phone].) Diet: Heart Healthy Addtl Attending Provider Instructions: You were admitted with symptoms consistent with a bacterial sinusitis (sinus i nfection). Additionally, your Group A Strep culture was positive from Dr. Santoyo's office. We are discharging you on a total of a 10-day treatment course. Since you started the appropriate antibiotics in the hospital, you only need to take oral antibiotics until September 11. Please see Dr. Santoyo around the time that you finish antibiotics. You should see him sooner if your lymph nodes get bigger or more painful, if you have more high fevers (greater than 101 degrees), if you have pain opening your mouth or turning your head, or if you start to have trouble swallowing. These are all signs that an abscess may have formed and would require prompt medical attention. Pending Studies at Discharge: No Stand-Alone Forms: My [facility] Diffon, Smoking Cessation Medications and DC Order Prescriptions: New amoxicillin 875 mg tablet 875 mg PO BID Qty: 17 RF: 0 Continued montelukast [Singulair] 10 mg tablet 10 mg PO HS Qty: 90 RF: 3 levothyroxine [Synthroid] 25 mcg tablet 25 mcg PO DAILY Qty: 30 RF: 5 diltiazem HCl 300 mg capsule,extended release 24 hr 300 mg PO DAILY Qty: 90 RF: 3 flecainide 50 mg tablet 50 mg PO Q12H Qty: 180 RF: 3 fluticasone propion-salmeterol [Advair Diskus] 500-50 mcg/dose blister with device 1 puffs INH BID Qty: 60 RF: 3 ipratropium-albuterol 0.5 mg-3 mg(2.5 mg base)/3 mL solution for nebulization 3 ml INHALATION DIRECTED PRN (Reason: Shortness Of Breath Or Wheezing) Qty: 90 RF: 3 budesonide 0.5 mg/2 mL suspension for nebulization 0.5 mg INH BID Qty: 60 RF: 2 Eliquis 2.5 mg Tablet 0 mg PO BID RF: 0 aspirin [Aspir-81] 81 mg Tablet,Delayed Release (Dr/Ec) 81 mg PO HS RF: 0 albuterol sulfate [ProAir HFA] 90 mcg/actuation Hfa Aerosol Inhaler 1 - 2 puff INHALATION DIRECTED PRN (Reason: Shortness Of Breath Or Wheezing) RF: 0 loratadine [Claritin] 10 mg Tablet 10 mg PO HS RF: 0 Discontinued doxycycline hyclate 100 mg tablet 100 mg PO BID Qty: 10 RF: 1 Discharge Orders: Discharge Order (Routine); Ordered 09/03/19 Ordered By: Gagandeep Levine/Other Patient Handouts: Diabetes Machine Clothing Replacer Complications, Diabetes Healthy Meals, Understanding Carbohydrates, Diabetes Exercise Benefits, Diabetes Living Life, A1C Admission Data Admit Date/Time: 09/01/19 21:50 Attending Provider: Gagandeep Lee Admit Provider: Mk Pickens Primary Care Provider: Osbaldo Santoyo Other Providers: Gagandeep Lee Other Interventions: Discharge Summary Assessment (RN) Last Done: 09/03/19 11:29 DC Date/Time DO NOT enter until pt leaves facility: 09/03/19 12:48 Coding Level of Care Code D/C Day Management >30 mins Diagnoses Sinusitis, acute J01.10 Sinusitis location: frontal Recurrence: not specified as recurrent Strep pharyngitis J02.0 Hyperglycemia R73.9 Lymphadenopathy of head and neck R59.1 Sepsis A41.9 Sepsis type: sepsis due to unspecified organism Sepsis acute organ dysfunction status: without acute organ dysfunction Asthma J45.909 Asthma severity: unspecified severity Asthma persistence: unspecified Asthma complication type: unspecified Afib I48.0 Atrial fibrillation type: paroxysmal Nocturnal hypoxemia G47.34 Hypertension I10 Hypertension type: essential hypertension GERD (gastroesophageal reflux disease) K21.9 Esophagitis presence: esophagitis presence not specified Hypothyroidism E03.9 Hypothyroidism type: acquired Morbid obesity E66.01 DVT prophylaxis Z29.9
== END 2019-09-03 12:48 | disposition home or self-care (01) | DRG 872 ==
LOC: ED 18:59 → 2N 21:50 → SUATTDRO 21:50 → 2N 22:57